=== PATIENT | male | born 1970 | race Two or more races ===

== ENCOUNTER 2022-03-22 08:26 | Inpatient (IN) | payer MEDICAID, MEDICARE ==
[~2022-03-22] VITALS: Ht 165.1 cm; Wt 66.5 kg
[2022-03-22 09:08] LABS: Hemoglobin 14.2 g/dL (13.5-17.5); Mean Corpuscular Hemoglobin 29.1 pg (28.0-32.0); Mean Corpuscular Hgb Conc. 33.8 g/dL (32.0-36.0); Mean Corpuscular Volume 86.2 fL (80.0-100.0); Red Blood Cells 4.87 10^6/uL (4.5-5.90); Red Cell Distribution Width 12.5 % (11.8-14.3); White Blood Cell 26.1 10^3/uL (4.4-10.8)
[2022-03-22 09:17] LABS: Band Neutrophils % (manual) 0; Basophils % (manual) 0 (0.0-2.0); Blast Cells 0; Eosinophils % (manual) 0 (0-7); Metamyelocytes % 0; Myelocytes % 0; Promyelocytes % 0; Reactive Lymphocytes 0
[2022-03-22 09:23] LABS: Albumin 2.4 g/dL (3.4-5.0); BUN/Creatinine Ratio 21.9; Calcium 8.3 mg/dL (8.5-10.1); Magnesium 2.2 mg/dL (1.6-2.6); Potassium 4.7 mmol/L (3.5-5.1)
[2022-03-22 09:34] LABS: Total Protein 6.6 g/dL (6.4-8.2)
[2022-03-22 10:40] LABS: Lymphocytes % (manual) 5 (10.0-50.0); Monocytes % (manual) 4 (0-12)
[2022-03-22] MEDS ORDERED: SODIUM CHLORIDE 0.9% 1,000 ML IV ONE ×2 (14:00→19:00)
[2022-03-22] MEDS ORDERED: cefTRIAXone 1GM/50ML D5W 50 ML IV ONE (14:00)
[2022-03-22] MEDS ORDERED: VANCOMYCIN 1GM/250ML 250 ML IV ONE (17:45)
[2022-03-22 17:46] LABS: Lactic Acid w/Reflex 2.5 mmol/L (0.4-2.0)
[2022-03-22 18:18] LABS: Urine Bacteria NONE SEEN /hpf (None Seen); Urine Blood Negative /uL (Negative); Urine Hyaline Cast FEW /lpf (0 - 2); Urine Specific Gravity 1.025 (1.001-1.035); Urine WBC 3 /hpf (0 - 3)
[2022-03-22 18:31] LABS: Alcohol, Urine < 3.0 mg/dL (0-10); Amphetamine Screen, Urine NEGATIVE (NEGATIVE); Barbiturate Scree,Urine NEGATIVE (NEGATIVE); Benzodiazephine Screen, Urine NEGATIVE (NEGATIVE); Cannabinoid Screen, Urine NEGATIVE (NEGATIVE); Cocaine Screen, Urine NEGATIVE (NEGATIVE); Opiate Scree,Urine NEGATIVE (NEGATIVE); Phencyclidine Screen, Urine NEGATIVE (NEGATIVE)
[2022-03-22] MEDS ORDERED: NITROGLYCERIN 0.4 MG SL TAB SL PRN (19:00)
[2022-03-22] MEDS ORDERED: VANCOMYCIN PER PHARMACY 0 MG IV SCH (19:00)
[2022-03-22] MEDS ORDERED: MORPHINE SULFATE INJ 2 MG/ml SYRG IV PRN (19:00)
[2022-03-22] MEDS ORDERED: ONDANSETRON HCL 4 MG/2 ML VIAL IV PRN (19:00)
[2022-03-22] MEDS ORDERED: DEXTROSE (50%) 50ML SYRG IV PRN (19:15)
[2022-03-22 19:57] LABS: Cholesterol 121 mg/dL (< 200)
[2022-03-22 20:00] LABS: HDL Cholesterol 17 mg/dL (40-59); LDL Cholesterol 88 mg/dL (< 100); Triglycerides 172 mg/dL (< 150)
[2022-03-22] MEDS: PIPERACILLIN-TAZOB 3.375GM 100 ML IV SCH (20:47)
[2022-03-22] MEDS: MORPHINE SULFATE INJ 2 MG/ml SYRG IV PRN (21:00)
[2022-03-22] MEDS: ACCU-CHEK COMFORT CURVE STRIP VI SCH (22:21)
[2022-03-22] MEDS: InsuLIN REG 1unit/0.01ml Soln (100units/ml) SC SCH (22:26)
[2022-03-23] MEDS: VANCOMYCIN 1GM/250ML 250 ML IV SCH ×3 (01:16→18:25)
[2022-03-23] MEDS ORDERED: METF-370 PO (01:16)
[2022-03-23] MEDS: SODIUM CHLORIDE 0.9% 1,000 ML IV SCH ×3 (01:16→12:22)
[2022-03-23] MEDS ORDERED: GABA250S2 PO (01:16)
[2022-03-23] MEDS ORDERED: INSLANTI SC (01:16)
[2022-03-23] MEDS: MORPHINE SULFATE INJ 2 MG/ml SYRG IV PRN (01:17)
[2022-03-23 05:00] VITALS: BP 127/62
[2022-03-23] MEDS: ACETAMINOPHEN 325 MG TAB PO PRN ×3 (05:07→22:40)
[2022-03-23] MEDS: PIPERACILLIN-TAZOB 3.375GM 100 ML IV SCH ×2 (06:12→14:34)
[2022-03-23] MEDS: ACCU-CHEK COMFORT CURVE STRIP VI SCH ×4 (06:34→23:04)
[2022-03-23] MEDS: InsuLIN REG 1unit/0.01ml Soln (100units/ml) SC SCH ×4 (06:35→23:11)
[2022-03-23 08:00] VITALS: BP 117/70
[2022-03-23 08:35] LABS: Hematocrit 40.5 % (41.0-53.0); Hemoglobin 13.7 g/dL (13.5-17.5); Mean Corpuscular Hemoglobin 29.2 pg (28.0-32.0); Mean Corpuscular Hgb Conc. 33.8 g/dL (32.0-36.0); Mean Corpuscular Volume 86.5 fL (80.0-100.0); Red Blood Cells 4.68 10^6/uL (4.5-5.90); Red Cell Distribution Width 12.5 % (11.8-14.3); White Blood Cell 26.6 10^3/uL (4.4-10.8)
[2022-03-23 08:46] LABS: Basophils % (manual) 0 (0.0-2.0); Blast Cells 0; Eosinophils % (manual) 0 (0-7); Metamyelocytes % 0; Myelocytes % 0; Promyelocytes % 0; Reactive Lymphocytes 0
[2022-03-23 08:54] VITALS: BP 117/62
[2022-03-23] MEDS: ENOXAPARIN SOD 40 MG/0.4 ML SYRINGE SC SCH (09:51)
[2022-03-23] MEDS: HYDROcodone-ACET 5/325MG TAB PO PRN (09:52)
[2022-03-23 09:57] LABS: Band Neutrophils % (manual) 1; Lymphocytes % (manual) 6 (10.0-50.0); Monocytes % (manual) 7 (0-12)
[2022-03-23 10:07] LABS: Albumin 1.8 g/dL (3.4-5.0); Calcium 7.8 mg/dL (8.5-10.1); Potassium 4.3 mmol/L (3.5-5.1)
[2022-03-23 10:10] LABS: BUN/Creatinine Ratio 21.6; Bilirubin, Total 0.7 mg/dL (0.2-1.0); Total Protein 5.5 g/dL (6.4-8.2)
[2022-03-23 13:00] VITALS: BP 113/68
[2022-03-23 17:00] VITALS: BP 122/69
[2022-03-23] MEDS ORDERED: PIPERACILLIN-TAZO 4.5GM 100 ML IV SCH (18:00)
[2022-03-23] MEDS: metFORMIN HYDROCHLORIDE 500 MG TAB PO SCH (18:24)
[2022-03-23] MEDS: PIPERACILLIN-TAZO 4.5GM 100 ML IV SCH (20:20)
[2022-03-23 22:00] VITALS: BP 122/64
[2022-03-23] MEDS ORDERED: INSULIN LANTUS (GLARGINE) 1 /0.01ml (100units/ml) SC SCH (22:00)
[2022-03-24] MEDS: PIPERACILLIN-TAZO 4.5GM 100 ML IV SCH ×4 (01:58→19:47)
[2022-03-24] MEDS: VANCOMYCIN 1GM/250ML 250 ML IV SCH ×3 (04:53→22:17)
[2022-03-24 05:00] VITALS: BP 111/63
[2022-03-24] MEDS: ACCU-CHEK COMFORT CURVE STRIP VI SCH ×4 (06:08→22:31)
[2022-03-24] MEDS: InsuLIN REG 1unit/0.01ml Soln (100units/ml) SC SCH ×4 (06:09→22:33)
[2022-03-24 08:00] VITALS: BP 113/63
[2022-03-24] MEDS: metFORMIN HYDROCHLORIDE 500 MG TAB PO SCH ×2 (08:07→18:02)
[2022-03-24 08:53] VITALS: BP 113/63
[2022-03-24] MEDS: ENOXAPARIN SOD 40 MG/0.4 ML SYRINGE SC SCH (10:05)
[2022-03-24 13:00] VITALS: BP 118/51
[2022-03-24 17:00] VITALS: BP 137/58
[2022-03-24 22:00] VITALS: BP 155/68
[2022-03-24] MEDS ORDERED: INSULIN LANTUS (GLARGINE) 1 /0.01ml (100units/ml) SC SCH (22:00)
[2022-03-24] MEDS: ACETAMINOPHEN 325 MG TAB PO PRN (22:17)
[2022-03-25] MEDS: PIPERACILLIN-TAZO 4.5GM 100 ML IV SCH ×4 (03:05→19:57)
[2022-03-25 05:00] VITALS: BP 97/57
[2022-03-25] MEDS: VANCOMYCIN 1GM/250ML 250 ML IV SCH ×2 (06:20→13:07)
[2022-03-25] MEDS: ACCU-CHEK COMFORT CURVE STRIP VI SCH ×4 (06:20→21:46)
[2022-03-25] MEDS: InsuLIN REG 1unit/0.01ml Soln (100units/ml) SC SCH ×4 (06:21→22:04)
[2022-03-25 06:37] LABS: Calcium 7.8 mg/dL (8.5-10.1); Potassium 3.9 mmol/L (3.5-5.1)
[2022-03-25 06:44] LABS: BUN/Creatinine Ratio 23.5
[2022-03-25 06:59] LABS: Basophils # (auto) 0.1 10 ^3/uL (0-0.2); Basophils % (auto) 0.6 % (0.0-2.0); Eosinophils # (auto) 0 10 ^3/uL (0-0.8); Eosinophils % (auto) 0.1 % (0.0-7.0); Hematocrit 35.3 % (41.0-53.0); Hemoglobin 11.9 g/dL (13.5-17.5); Lymphocytes % (auto) 6.5 % (10.0-50.0); Mean Corpuscular Hgb Conc. 33.7 g/dL (32.0-36.0); Monocytes # (auto) 0.9 10 ^3/uL (0-1.3); Monocytes % (auto) 5.6 % (0.0-12.0); Neutrophils # (auto) 13.4 10 ^3/uL (1.6-8.6); Neutrophils % (auto) 87.2 % (37.0-80.0); Nucleated Red Blood Cells % 0.1 %; Red Blood Cells 4.11 10^6/uL (4.5-5.90); Red Cell Distribution Width 12.6 % (11.8-14.3); White Blood Cell 15.3 10^3/uL (4.4-10.8)
[2022-03-25] MEDS: metFORMIN HYDROCHLORIDE 500 MG TAB PO SCH ×2 (08:22→17:44)
[2022-03-25 08:25] VITALS: BP 110/56
[2022-03-25] MEDS: ENOXAPARIN SOD 40 MG/0.4 ML SYRINGE SC SCH (10:26)
[2022-03-25 16:52] VITALS: BP 150/70
[2022-03-25] MEDS: MORPHINE SULFATE INJ 2 MG/ml SYRG IV PRN (17:34)
[2022-03-25] MEDS: INSULIN LANTUS (GLARGINE) 1 /0.01ml (100units/ml) SC SCH (21:47)
[2022-03-25 22:00] VITALS: BP 127/56
[2022-03-26] MEDS: VANCOMYCIN 1GM/250ML 250 ML IV SCH ×3 (00:03→17:44)
[2022-03-26] MEDS: PIPERACILLIN-TAZO 4.5GM 100 ML IV SCH ×4 (01:47→20:01)
[2022-03-26 05:00] VITALS: BP 124/42
[2022-03-26 05:42] LABS: Eosinophils # (auto) 0 10 ^3/uL (0-0.8); Eosinophils % (auto) 0.3 % (0.0-7.0); Monocytes # (auto) 1.3 10 ^3/uL (0-1.3)
[2022-03-26 05:47] LABS: Basophils # (auto) 0.2 10 ^3/uL (0-0.2); Basophils % (auto) 1.3 % (0.0-2.0); Hemoglobin 11.6 g/dL (13.5-17.5); Lymphocytes # (auto) 1.3 10 ^3/uL (0.4-5.4); Mean Corpuscular Hemoglobin 28.6 pg (28.0-32.0); Mean Corpuscular Hgb Conc. 33.1 g/dL (32.0-36.0); Mean Corpuscular Volume 86.3 fL (80.0-100.0); Monocytes % (auto) 8.9 % (0.0-12.0); Neutrophils # (auto) 11.8 10 ^3/uL (1.6-8.6); Neutrophils % (auto) 80.5 % (37.0-80.0); Red Blood Cells 4.06 10^6/uL (4.5-5.90); Red Cell Distribution Width 12.6 % (11.8-14.3); White Blood Cell 14.7 10^3/uL (4.4-10.8)
[2022-03-26 05:53] LABS: BUN/Creatinine Ratio 18.3; Calcium 7.8 mg/dL (8.5-10.1); Potassium 3.9 mmol/L (3.5-5.1)
[2022-03-26] MEDS: ACCU-CHEK COMFORT CURVE STRIP VI SCH ×4 (06:10→21:52)
[2022-03-26] MEDS: InsuLIN REG 1unit/0.01ml Soln (100units/ml) SC SCH ×4 (06:10→21:53)
[2022-03-26 09:00] VITALS: BP 111/54
[2022-03-26] MEDS: metFORMIN HYDROCHLORIDE 500 MG TAB PO SCH ×2 (09:23→17:44)
[2022-03-26] MEDS: HYDROcodone-ACET 5/325MG TAB PO PRN (09:24)
[2022-03-26] MEDS: ENOXAPARIN SOD 40 MG/0.4 ML SYRINGE SC SCH (09:24)
[2022-03-26 13:00] VITALS: BP 129/60
[2022-03-26 17:00] VITALS: BP 105/58
[2022-03-26] MEDS: MORPHINE SULFATE INJ 2 MG/ml SYRG IV PRN (20:01)
[2022-03-26] MEDS: INSULIN LANTUS (GLARGINE) 1 /0.01ml (100units/ml) SC SCH (21:53)
[2022-03-26 22:00] VITALS: BP 157/55
[2022-03-27] MEDS: VANCOMYCIN 1GM/250ML 250 ML IV SCH ×2 (00:38→19:38)
[2022-03-27] MEDS: PIPERACILLIN-TAZO 4.5GM 100 ML IV SCH ×4 (02:14→21:08)
[2022-03-27 05:00] VITALS: BP 125/53
[2022-03-27 06:02] LABS: Basophils # (auto) 0.1 10 ^3/uL (0-0.2)
[2022-03-27] MEDS: ACCU-CHEK COMFORT CURVE STRIP VI SCH ×4 (06:04→22:04)
[2022-03-27] MEDS: InsuLIN REG 1unit/0.01ml Soln (100units/ml) SC SCH ×4 (06:04→22:03)
[2022-03-27 06:05] LABS: Basophils % (auto) 1.1 % (0.0-2.0); Eosinophils # (auto) 0.1 10 ^3/uL (0-0.8); Eosinophils % (auto) 0.4 % (0.0-7.0); Hematocrit 34.6 % (41.0-53.0); Hemoglobin 11.6 g/dL (13.5-17.5); Lymphocytes # (auto) 1.4 10 ^3/uL (0.4-5.4); Lymphocytes % (auto) 11.1 % (10.0-50.0); Mean Corpuscular Hemoglobin 29.2 pg (28.0-32.0); Mean Corpuscular Hgb Conc. 33.6 g/dL (32.0-36.0); Mean Corpuscular Volume 86.9 fL (80.0-100.0); Monocytes % (auto) 8.3 % (0.0-12.0); Neutrophils # (auto) 9.8 10 ^3/uL (1.6-8.6); Neutrophils % (auto) 79.1 % (37.0-80.0); Red Blood Cells 3.98 10^6/uL (4.5-5.90); Red Cell Distribution Width 12.8 % (11.8-14.3); White Blood Cell 12.4 10^3/uL (4.4-10.8)
[2022-03-27 06:17] LABS: BUN/Creatinine Ratio 15.3; Calcium 7.7 mg/dL (8.5-10.1); Potassium 3.9 mmol/L (3.5-5.1)
[2022-03-27 08:27] VITALS: BP 109/57
[2022-03-27] MEDS: ENOXAPARIN SOD 40 MG/0.4 ML SYRINGE SC SCH (10:16)
[2022-03-27] MEDS: metFORMIN HYDROCHLORIDE 500 MG TAB PO SCH ×2 (10:16→17:24)
[2022-03-27] MEDS: MORPHINE SULFATE INJ 2 MG/ml SYRG IV PRN ×2 (10:29→21:31)
[2022-03-27] MEDS ORDERED: IOHEXOL 300 MG/ML 100ML BOTTLE IJ ONE (11:20)
[2022-03-27 12:55] VITALS: BP 152/48
[2022-03-27] MEDS: Pro-Stat SF 30ml Vanilla PO SCH (18:00)
[2022-03-27 18:36] VITALS: BP 140/36
[2022-03-27 22:00] VITALS: BP 110/52
[2022-03-27] MEDS: INSULIN LANTUS (GLARGINE) 1 /0.01ml (100units/ml) SC SCH (22:04)
[2022-03-28] MEDS: PIPERACILLIN-TAZO 4.5GM 100 ML IV SCH ×4 (02:52→21:19)
[2022-03-28 05:00] VITALS: BP 115/55
[2022-03-28 06:01] LABS: Basophils # (auto) 0.1 10 ^3/uL (0-0.2); Eosinophils # (auto) 0.1 10 ^3/uL (0-0.8); Eosinophils % (auto) 0.5 % (0.0-7.0); Hemoglobin 11.3 g/dL (13.5-17.5); Neutrophils # (auto) 9.5 10 ^3/uL (1.6-8.6)
[2022-03-28 06:03] LABS: Basophils % (auto) 0.7 % (0.0-2.0); Hematocrit 33.4 % (41.0-53.0); Lymphocytes # (auto) 1.5 10 ^3/uL (0.4-5.4); Lymphocytes % (auto) 12.5 % (10.0-50.0); Mean Corpuscular Hgb Conc. 33.7 g/dL (32.0-36.0); Mean Corpuscular Volume 86.2 fL (80.0-100.0); Monocytes % (auto) 8.5 % (0.0-12.0); Neutrophils % (auto) 77.8 % (37.0-80.0); Red Blood Cells 3.88 10^6/uL (4.5-5.90); Red Cell Distribution Width 12.9 % (11.8-14.3); White Blood Cell 12.2 10^3/uL (4.4-10.8)
[2022-03-28 06:13] LABS: BUN/Creatinine Ratio 22.5; Calcium 7.5 mg/dL (8.5-10.1)
[2022-03-28] MEDS: ACCU-CHEK COMFORT CURVE STRIP VI SCH ×4 (06:22→21:58)
[2022-03-28] MEDS: InsuLIN REG 1unit/0.01ml Soln (100units/ml) SC SCH ×4 (06:23→21:57)
[2022-03-28] MEDS: metFORMIN HYDROCHLORIDE 500 MG TAB PO SCH ×2 (08:00→18:00)
[2022-03-28] MEDS: ENOXAPARIN SOD 40 MG/0.4 ML SYRINGE SC SCH (08:50)
[2022-03-28] MEDS: Pro-Stat SF 30ml Vanilla PO SCH ×2 (08:50→17:06)
[2022-03-28 09:00] VITALS: BP 139/55
[2022-03-28] MEDS: MORPHINE SULFATE INJ 2 MG/ml SYRG IV PRN (09:52)
[2022-03-28] MEDS: VANCOMYCIN 1GM/250ML 250 ML IV SCH (11:54)
[2022-03-28 13:00] VITALS: BP 126/49
[2022-03-28 16:42] VITALS: BP 126/54
[2022-03-28] MEDS: INSULIN LANTUS (GLARGINE) 1 /0.01ml (100units/ml) SC SCH (21:58)
[2022-03-28] MEDS: HYDROcodone-ACET 5/325MG TAB PO PRN (22:05)
[2022-03-28 22:12] VITALS: BP 106/62
[2022-03-29] MEDS: PIPERACILLIN-TAZO 4.5GM 100 ML IV SCH ×4 (02:33→20:10)
[2022-03-29 04:44] VITALS: BP 101/58
[2022-03-29 05:51] LABS: Basophils # (auto) 0.4 10 ^3/uL (0-0.2); Basophils % (auto) 4.4 % (0.0-2.0); Eosinophils # (auto) 0.1 10 ^3/uL (0-0.8); Eosinophils % (auto) 1.5 % (0.0-7.0); Hematocrit 32.6 % (41.0-53.0); Hemoglobin 11.1 g/dL (13.5-17.5); Lymphocytes % (auto) 19.9 % (10.0-50.0); Mean Corpuscular Hemoglobin 29.4 pg (28.0-32.0); Mean Corpuscular Volume 86.3 fL (80.0-100.0); Monocytes # (auto) 0.9 10 ^3/uL (0-1.3); Monocytes % (auto) 8.8 % (0.0-12.0); Neutrophils # (auto) 6.6 10 ^3/uL (1.6-8.6); Neutrophils % (auto) 65.4 % (37.0-80.0); Red Blood Cells 3.77 10^6/uL (4.5-5.90); Red Cell Distribution Width 13.1 % (11.8-14.3)
[2022-03-29 06:16] LABS: Calcium 7.7 mg/dL (8.5-10.1); Potassium 4.4 mmol/L (3.5-5.1)
[2022-03-29 06:19] LABS: BUN/Creatinine Ratio 22.7
[2022-03-29] MEDS: InsuLIN REG 1unit/0.01ml Soln (100units/ml) SC SCH ×4 (06:32→22:52)
[2022-03-29] MEDS: ACCU-CHEK COMFORT CURVE STRIP VI SCH ×4 (06:32→22:53)
[2022-03-29] MEDS: VANCOMYCIN 1GM/250ML 250 ML IV SCH (06:34)
[2022-03-29 09:00] VITALS: BP 109/58
[2022-03-29] MEDS: metFORMIN HYDROCHLORIDE 500 MG TAB PO SCH ×2 (09:21→18:18)
[2022-03-29] MEDS: ENOXAPARIN SOD 40 MG/0.4 ML SYRINGE SC SCH (09:22)
[2022-03-29] MEDS: Pro-Stat SF 30ml Vanilla PO SCH ×2 (12:49→18:18)
[2022-03-29 13:00] VITALS: BP 116/64
[2022-03-29] MEDS: HYDROcodone-ACET 5/325MG TAB PO PRN (14:35)
[2022-03-29 17:00] VITALS: BP 110/64
[2022-03-29] MEDS: MORPHINE SULFATE INJ 2 MG/ml SYRG IV PRN (18:21)
[2022-03-29 22:00] VITALS: BP 107/63
[2022-03-29] MEDS: INSULIN LANTUS (GLARGINE) 1 /0.01ml (100units/ml) SC SCH (22:52)
[2022-03-30] MEDS: VANCOMYCIN 1GM/250ML 250 ML IV SCH ×2 (00:07→17:41)
[2022-03-30] MEDS: PIPERACILLIN-TAZO 4.5GM 100 ML IV SCH ×4 (02:04→21:20)
[2022-03-30 05:00] VITALS: BP 111/65
[2022-03-30 05:06] LABS: Basophils # (auto) 0.2 10 ^3/uL (0-0.2); Basophils % (auto) 1.5 % (0.0-2.0); Eosinophils # (auto) 0.1 10 ^3/uL (0-0.8); Eosinophils % (auto) 1.3 % (0.0-7.0); Hematocrit 34.8 % (41.0-53.0); Hemoglobin 11.5 g/dL (13.5-17.5); Lymphocytes # (auto) 1.6 10 ^3/uL (0.4-5.4); Lymphocytes % (auto) 13.9 % (10.0-50.0); Mean Corpuscular Hemoglobin 28.5 pg (28.0-32.0); Mean Corpuscular Hgb Conc. 32.9 g/dL (32.0-36.0); Mean Corpuscular Volume 86.6 fL (80.0-100.0); Monocytes % (auto) 8.9 % (0.0-12.0); Neutrophils # (auto) 8.6 10 ^3/uL (1.6-8.6); Neutrophils % (auto) 74.4 % (37.0-80.0); Red Blood Cells 4.02 10^6/uL (4.5-5.90); Red Cell Distribution Width 12.8 % (11.8-14.3); White Blood Cell 11.6 10^3/uL (4.4-10.8)
[2022-03-30 05:20] LABS: Potassium 4.6 mmol/L (3.5-5.1)
[2022-03-30] MEDS: InsuLIN REG 1unit/0.01ml Soln (100units/ml) SC SCH ×4 (07:00→21:27)
[2022-03-30] MEDS: ACCU-CHEK COMFORT CURVE STRIP VI SCH ×4 (07:02→21:09)
[2022-03-30] MEDS: ENOXAPARIN SOD 40 MG/0.4 ML SYRINGE SC SCH (08:27)
[2022-03-30] MEDS: metFORMIN HYDROCHLORIDE 500 MG TAB PO SCH ×2 (08:27→17:38)
[2022-03-30] MEDS: Pro-Stat SF 30ml Vanilla PO SCH ×2 (08:28→17:42)
[2022-03-30 09:00] VITALS: BP 115/59
[2022-03-30] MEDS: HYDROcodone-ACET 5/325MG TAB PO PRN (09:34)
[2022-03-30 13:00] VITALS: BP 108/62
[2022-03-30] MEDS: MORPHINE SULFATE INJ 2 MG/ml SYRG IV PRN ×2 (15:00→21:06)
[2022-03-30 17:00] VITALS: BP 125/68
[2022-03-30 20:00] VITALS: BP 130/67
[2022-03-30] MEDS: INSULIN LANTUS (GLARGINE) 1 /0.01ml (100units/ml) SC SCH (21:28)
[2022-03-30 22:00] VITALS: BP 130/67
[2022-03-31] MEDS: PIPERACILLIN-TAZO 4.5GM 100 ML IV SCH ×4 (03:31→20:28)
[2022-03-31 05:00] VITALS: BP 157/51
[2022-03-31] MEDS: InsuLIN REG 1unit/0.01ml Soln (100units/ml) SC SCH ×4 (06:26→22:36)
[2022-03-31] MEDS: ACCU-CHEK COMFORT CURVE STRIP VI SCH ×4 (06:26→22:00)
[2022-03-31] MEDS: metFORMIN HYDROCHLORIDE 500 MG TAB PO SCH ×2 (08:12→17:14)
[2022-03-31] MEDS: ENOXAPARIN SOD 40 MG/0.4 ML SYRINGE SC SCH (08:12)
[2022-03-31] MEDS: Pro-Stat SF 30ml Vanilla PO SCH ×2 (08:13→17:15)
[2022-03-31] MEDS: HYDROcodone-ACET 5/325MG TAB PO PRN ×3 (08:19→22:37)
[2022-03-31 08:30] VITALS: BP 125/62
[2022-03-31 09:40] LABS: Basophils # (auto) 0.2 10 ^3/uL (0-0.2); Eosinophils # (auto) 0.1 10 ^3/uL (0-0.8); Lymphocytes # (auto) 1.4 10 ^3/uL (0.4-5.4)
[2022-03-31 09:42] LABS: Basophils % (auto) 1.3 % (0.0-2.0); Eosinophils % (auto) 0.5 % (0.0-7.0); Hematocrit 33.6 % (41.0-53.0); Hemoglobin 11.3 g/dL (13.5-17.5); Lymphocytes % (auto) 8.8 % (10.0-50.0); Mean Corpuscular Hemoglobin 28.9 pg (28.0-32.0); Mean Corpuscular Hgb Conc. 33.8 g/dL (32.0-36.0); Mean Corpuscular Volume 85.5 fL (80.0-100.0); Monocytes % (auto) 6.4 % (0.0-12.0); Neutrophils # (auto) 13.2 10 ^3/uL (1.6-8.6); Red Blood Cells 3.92 10^6/uL (4.5-5.90); Red Cell Distribution Width 12.9 % (11.8-14.3); White Blood Cell 15.9 10^3/uL (4.4-10.8)
[2022-03-31 10:00] LABS: Calcium 8.1 mg/dL (8.5-10.1); Potassium 4.7 mmol/L (3.5-5.1)
[2022-03-31] MEDS: VANCOMYCIN 1GM/250ML 250 ML IV SCH (12:09)
[2022-03-31 12:36] VITALS: BP 112/64
[2022-03-31 12:38] VITALS: BP 112/64
[2022-03-31 17:40] VITALS: BP 113/62
[2022-03-31 22:00] VITALS: BP 120/60
[2022-03-31] MEDS: INSULIN LANTUS (GLARGINE) 1 /0.01ml (100units/ml) SC SCH (22:36)
[2022-04-01] MEDS: PIPERACILLIN-TAZO 4.5GM 100 ML IV SCH ×4 (02:17→19:50)
[2022-04-01 05:00] VITALS: BP 130/67
[2022-04-01] MEDS: VANCOMYCIN 1GM/250ML 250 ML IV SCH (05:34)
[2022-04-01] MEDS: InsuLIN REG 1unit/0.01ml Soln (100units/ml) SC SCH ×4 (06:26→22:18)
[2022-04-01] MEDS: ACCU-CHEK COMFORT CURVE STRIP VI SCH ×4 (06:28→22:19)
[2022-04-01] MEDS: metFORMIN HYDROCHLORIDE 500 MG TAB PO SCH ×2 (08:47→18:08)
[2022-04-01] MEDS: HYDROcodone-ACET 5/325MG TAB PO PRN ×3 (08:48→22:33)
[2022-04-01] MEDS: Pro-Stat SF 30ml Vanilla PO SCH ×2 (08:49→18:10)
[2022-04-01] MEDS: ENOXAPARIN SOD 40 MG/0.4 ML SYRINGE SC SCH (08:50)
[2022-04-01 09:00] VITALS: BP 116/65
[2022-04-01 13:00] VITALS: BP 119/62
[2022-04-01 17:00] VITALS: BP 120/67
[2022-04-01 22:00] VITALS: BP 134/65
[2022-04-01] MEDS: INSULIN LANTUS (GLARGINE) 1 /0.01ml (100units/ml) SC SCH (22:19)
[2022-04-02] MEDS: VANCOMYCIN 1GM/250ML 250 ML IV SCH ×2 (00:18→12:17)
[2022-04-02] MEDS: PIPERACILLIN-TAZO 4.5GM 100 ML IV SCH ×4 (02:27→19:59)
[2022-04-02 05:00] VITALS: BP 124/65
[2022-04-02] MEDS: InsuLIN REG 1unit/0.01ml Soln (100units/ml) SC SCH ×4 (06:39→21:50)
[2022-04-02] MEDS: ACCU-CHEK COMFORT CURVE STRIP VI SCH ×4 (06:39→21:52)
[2022-04-02 08:14] VITALS: BP 112/53
[2022-04-02] MEDS: metFORMIN HYDROCHLORIDE 500 MG TAB PO SCH ×2 (08:40→18:32)
[2022-04-02] MEDS: Pro-Stat SF 30ml Vanilla PO SCH ×2 (08:41→18:17)
[2022-04-02] MEDS: ENOXAPARIN SOD 40 MG/0.4 ML SYRINGE SC SCH (09:27)
[2022-04-02 11:09] LABS: Eosinophils # (auto) 0.2 10 ^3/uL (0-0.8); Hemoglobin 11.1 g/dL (13.5-17.5); Nucleated Red Blood Cells % 0.1 %
[2022-04-02 11:12] LABS: Basophils # (auto) 0.1 10 ^3/uL (0-0.2); Basophils % (auto) 0.7 % (0.0-2.0); Hematocrit 34.3 % (41.0-53.0); Lymphocytes # (auto) 1.4 10 ^3/uL (0.4-5.4); Lymphocytes % (auto) 8.5 % (10.0-50.0); Mean Corpuscular Hgb Conc. 32.4 g/dL (32.0-36.0); Mean Corpuscular Volume 86.4 fL (80.0-100.0); Monocytes # (auto) 0.9 10 ^3/uL (0-1.3); Monocytes % (auto) 5.1 % (0.0-12.0); Neutrophils # (auto) 14.1 10 ^3/uL (1.6-8.6); Neutrophils % (auto) 84.7 % (37.0-80.0); Red Blood Cells 3.97 10^6/uL (4.5-5.90); Red Cell Distribution Width 12.9 % (11.8-14.3); White Blood Cell 16.7 10^3/uL (4.4-10.8)
[2022-04-02 11:53] LABS: BUN/Creatinine Ratio 19.8; Calcium 7.9 mg/dL (8.5-10.1); Potassium 4.5 mmol/L (3.5-5.1)
[2022-04-02 13:48] VITALS: BP 115/64
[2022-04-02 17:37] VITALS: BP 128/69
[2022-04-02] MEDS: HYDROcodone-ACET 5/325MG TAB PO PRN (21:50)
[2022-04-02] MEDS: INSULIN LANTUS (GLARGINE) 1 /0.01ml (100units/ml) SC SCH (21:50)
[2022-04-03] MEDS: VANCOMYCIN 1GM/250ML 250 ML IV SCH ×3 (00:01→23:55)
[2022-04-03] MEDS: PIPERACILLIN-TAZO 4.5GM 100 ML IV SCH ×4 (02:00→19:49)
[2022-04-03 05:00] VITALS: BP 132/65
[2022-04-03] MEDS: InsuLIN REG 1unit/0.01ml Soln (100units/ml) SC SCH ×4 (06:46→22:04)
[2022-04-03] MEDS: ACCU-CHEK COMFORT CURVE STRIP VI SCH ×4 (06:46→22:06)
[2022-04-03] MEDS: metFORMIN HYDROCHLORIDE 500 MG TAB PO SCH ×2 (08:33→18:00)
[2022-04-03] MEDS: Pro-Stat SF 30ml Vanilla PO SCH ×2 (08:34→18:04)
[2022-04-03 09:00] VITALS: BP 121/65
[2022-04-03] MEDS: ENOXAPARIN SOD 40 MG/0.4 ML SYRINGE SC SCH (09:57)
[2022-04-03 12:46] VITALS: BP 107/65
[2022-04-03] MEDS: HYDROcodone-ACET 10/325MG TAB PO PRN (16:22)
[2022-04-03 17:00] VITALS: BP 154/72
[2022-04-03 20:00] VITALS: BP 136/62
[2022-04-03 22:00] VITALS: BP 136/62
[2022-04-03] MEDS: INSULIN LANTUS (GLARGINE) 1 /0.01ml (100units/ml) SC SCH (22:06)
[2022-04-04] MEDS: PIPERACILLIN-TAZO 4.5GM 100 ML IV SCH ×4 (02:12→20:25)
[2022-04-04 05:00] VITALS: BP 122/59
[2022-04-04] MEDS: InsuLIN REG 1unit/0.01ml Soln (100units/ml) SC SCH ×4 (06:44→22:00)
[2022-04-04] MEDS: ACCU-CHEK COMFORT CURVE STRIP VI SCH ×4 (06:44→22:41)
[2022-04-04] MEDS: metFORMIN HYDROCHLORIDE 500 MG TAB PO SCH ×2 (08:00→17:13)
[2022-04-04] MEDS: Pro-Stat SF 30ml Vanilla PO SCH ×2 (08:16→18:33)
[2022-04-04 08:53] VITALS: BP 131/68
[2022-04-04] MEDS: VANCOMYCIN 1GM/250ML 250 ML IV SCH (12:17)
[2022-04-04 13:00] VITALS: BP 140/72
[2022-04-04 14:36] LABS: Basophils # (auto) 0.1 10 ^3/uL (0-0.2); Basophils % (auto) 0.4 % (0.0-2.0); Eosinophils # (auto) 0.4 10 ^3/uL (0-0.8); Eosinophils % (auto) 2.7 % (0.0-7.0); Hematocrit 30.9 % (41.0-53.0); Lymphocytes # (auto) 0.8 10 ^3/uL (0.4-5.4); Lymphocytes % (auto) 6.3 % (10.0-50.0); Mean Corpuscular Hemoglobin 28.2 pg (28.0-32.0); Mean Corpuscular Hgb Conc. 32.3 g/dL (32.0-36.0); Mean Corpuscular Volume 87.3 fL (80.0-100.0); Monocytes # (auto) 0.7 10 ^3/uL (0-1.3); Neutrophils # (auto) 11.3 10 ^3/uL (1.6-8.6); Neutrophils % (auto) 85.6 % (37.0-80.0); Nucleated Red Blood Cells % 0.1 %; Red Blood Cells 3.54 10^6/uL (4.5-5.90); Red Cell Distribution Width 12.8 % (11.8-14.3); White Blood Cell 13.3 10^3/uL (4.4-10.8)
[2022-04-04 14:50] LABS: INR 1.17 (0.9-1.15)
[2022-04-04 14:56] LABS: Albumin 1.8 g/dL (3.4-5.0); Calcium 7.6 mg/dL (8.5-10.1); Potassium 4.3 mmol/L (3.5-5.1)
[2022-04-04 15:05] LABS: BUN/Creatinine Ratio 17.6; Bilirubin, Total 0.4 mg/dL (0.2-1.0); Total Protein 5.8 g/dL (6.4-8.2)
[2022-04-04 17:44] LABS: Calcium 7.3 mg/dL (8.5-10.1); Potassium 4.1 mmol/L (3.5-5.1)
[2022-04-04 20:00] VITALS: BP 156/65
[2022-04-04] MEDS: HYDROcodone-ACET 10/325MG TAB PO PRN (20:28)
[2022-04-04 22:20] VITALS: BP 156/65
[2022-04-04] MEDS: ACETAMINOPHEN 325 MG TAB PO PRN (22:36)
[2022-04-04] MEDS: INSULIN LANTUS (GLARGINE) 1 /0.01ml (100units/ml) SC SCH (22:38)
[2022-04-05] MEDS: VANCOMYCIN 1GM/250ML 250 ML IV SCH ×2 (00:16→12:45)
[2022-04-05] MEDS: PIPERACILLIN-TAZO 4.5GM 100 ML IV SCH ×3 (02:19→17:46)
[2022-04-05 05:21] VITALS: BP 120/58
[2022-04-05] MEDS: InsuLIN REG 1unit/0.01ml Soln (100units/ml) SC SCH ×4 (05:58→21:04)
[2022-04-05] MEDS: ACCU-CHEK COMFORT CURVE STRIP VI SCH ×4 (05:58→21:11)
[2022-04-05 07:01] LABS: Basophils # (auto) 0 10 ^3/uL (0-0.2); Basophils % (auto) 0.3 % (0.0-2.0); Eosinophils # (auto) 0.4 10 ^3/uL (0-0.8); Monocytes # (auto) 0.8 10 ^3/uL (0-1.3); Neutrophils % (auto) 87.7 % (37.0-80.0)
[2022-04-05 07:03] LABS: Eosinophils % (auto) 2.9 % (0.0-7.0); Hematocrit 33.2 % (41.0-53.0); Hemoglobin 11.2 g/dL (13.5-17.5); Lymphocytes # (auto) 0.5 10 ^3/uL (0.4-5.4); Lymphocytes % (auto) 3.8 % (10.0-50.0); Mean Corpuscular Hemoglobin 28.5 pg (28.0-32.0); Mean Corpuscular Hgb Conc. 33.6 g/dL (32.0-36.0); Mean Corpuscular Volume 84.8 fL (80.0-100.0); Monocytes % (auto) 5.3 % (0.0-12.0); Neutrophils # (auto) 12.5 10 ^3/uL (1.6-8.6); Red Blood Cells 3.92 10^6/uL (4.5-5.90); White Blood Cell 14.3 10^3/uL (4.4-10.8)
[2022-04-05 07:05] LABS: INR 1.16 (0.9-1.15); Partial Thromboplastin Time 29.9 sec (24.6-33.4)
[2022-04-05] MEDS: metFORMIN HYDROCHLORIDE 500 MG TAB PO SCH ×2 (08:00→17:11)
[2022-04-05] MEDS: Pro-Stat SF 30ml Vanilla PO SCH ×2 (08:59→17:46)
[2022-04-05 09:05] VITALS: BP 140/64
[2022-04-05] MEDS ORDERED: ENOXAPARIN SOD 40 MG/0.4 ML SYRINGE SC ONE (12:00)
[2022-04-05 12:56] VITALS: BP 125/59
[2022-04-05 16:34] VITALS: BP 151/79
[2022-04-05] MEDS: ACETAMINOPHEN 325 MG TAB PO PRN (18:18)
[2022-04-05] MEDS: INSULIN LANTUS (GLARGINE) 1 /0.01ml (100units/ml) SC SCH (21:10)
[2022-04-05] MEDS: HYDROcodone-ACET 10/325MG TAB PO PRN (21:49)
[2022-04-05 22:00] VITALS: BP 115/51
[2022-04-06] MEDS: PIPERACILLIN-TAZO 4.5GM 100 ML IV SCH ×5 (04:07→23:30)
[2022-04-06] MEDS: VANCOMYCIN 1GM/250ML 250 ML IV SCH ×2 (04:07→11:37)
[2022-04-06] MEDS: InsuLIN REG 1unit/0.01ml Soln (100units/ml) SC SCH ×4 (04:35→23:31)
[2022-04-06] MEDS: ACCU-CHEK COMFORT CURVE STRIP VI SCH ×4 (04:37→23:27)
[2022-04-06 05:00] VITALS: BP 114/54
[2022-04-06 05:55] LABS: Potassium 4.2 mmol/L (3.5-5.1)
[2022-04-06 06:08] LABS: Albumin 1.8 g/dL (3.4-5.0); BUN/Creatinine Ratio 26.7; Calcium 7.9 mg/dL (8.5-10.1); Phosphorus 2.9 mg/dL (2.5-4.90)
[2022-04-06] MEDS: Pro-Stat SF 30ml Vanilla PO SCH ×2 (08:55→17:35)
[2022-04-06] MEDS: metFORMIN HYDROCHLORIDE 500 MG TAB PO SCH ×2 (08:55→17:35)
[2022-04-06 09:00] VITALS: BP 107/56
[2022-04-06] MEDS: ENOXAPARIN SOD 40 MG/0.4 ML SYRINGE SC SCH (11:07)
[2022-04-06 12:36] VITALS: BP 121/68
[2022-04-06 16:58] VITALS: BP 135/60
[2022-04-06 22:00] VITALS: BP 107/58
[2022-04-06] MEDS: INSULIN LANTUS (GLARGINE) 1 /0.01ml (100units/ml) SC SCH (23:30)
[2022-04-06] MEDS: ACETAMINOPHEN 325 MG TAB PO PRN (23:32)
[2022-04-07 05:00] VITALS: BP 116/62
[2022-04-07] MEDS: PIPERACILLIN-TAZO 4.5GM 100 ML IV SCH ×4 (05:50→23:07)
[2022-04-07 06:00] VITALS: BP 118/58
[2022-04-07] MEDS: InsuLIN REG 1unit/0.01ml Soln (100units/ml) SC SCH ×4 (06:10→23:07)
[2022-04-07] MEDS: ACCU-CHEK COMFORT CURVE STRIP VI SCH ×4 (06:10→22:58)
[2022-04-07] MEDS: Pro-Stat SF 30ml Vanilla PO SCH ×2 (08:00→18:21)
[2022-04-07] MEDS: metFORMIN HYDROCHLORIDE 500 MG TAB PO SCH ×2 (09:36→18:21)
[2022-04-07] MEDS: ENOXAPARIN SOD 40 MG/0.4 ML SYRINGE SC SCH (09:37)
[2022-04-07] MEDS ORDERED: BUPIVACAINE 0.25% INJ 50ML VIAL ONE (12:09)
[2022-04-07] MEDS ORDERED: GENTAMICIN SULFATE 80 MG in D5W 5% 100 ML IV ONE (12:45)
[2022-04-07] MEDS ORDERED: VANCOMYCIN HCL 1000 MG VL ONE (12:45)
[2022-04-07 13:04] VITALS: BP 124/65
[2022-04-07] MEDS ORDERED: GENTAMICIN SULF 80 MG/2 ML VIAL IR ONE (13:15)
[2022-04-07] MEDS ORDERED: PROPOFOL 10 MG/ML 20 ML IV ONE ×4 (13:20→14:10)
[2022-04-07] MEDS ORDERED: LIDOCAINE 2% (LOCAL ANESTH.) PF 5ml SDV ONE (13:21)
[2022-04-07] MEDS ORDERED: ONDANSETRON HCL 4 MG/2 ML VIAL ONE (13:21)
[2022-04-07] MEDS ORDERED: KETOROLAC TROMETH 30 MG/ML 1ML VIAL ONE (13:21)
[2022-04-07] MEDS ORDERED: DexAMETHasone SOD PHOS 10MG/1ML VIAL INJ ONE (13:21)
[2022-04-07] MEDS ORDERED: BUPIVACAINE W/ EPINEPH 0.25% INJ 50ML MDV ONE (13:30)
[2022-04-07] MEDS ORDERED: GLYCOPYRROLATE 0.2 MG/ML 1ML VIAL ONE (13:31)
[2022-04-07] MEDS ORDERED: TRANEXAMIC ACID 20 ML ONE (14:08)
[2022-04-07] MEDS ORDERED: KETAMINE 50mg/ML 10ml Vial (500mg/10ml) IV ONE (15:50)
[2022-04-07 17:02] VITALS: BP 135/66
[2022-04-07] MEDS: HYDROcodone-ACET 10/325MG TAB PO PRN (19:50)
[2022-04-07 22:00] VITALS: BP 105/55
[2022-04-07] MEDS: INSULIN LANTUS (GLARGINE) 1 /0.01ml (100units/ml) SC SCH (23:07)
[2022-04-08 05:00] VITALS: BP 123/67
[2022-04-08] MEDS: PIPERACILLIN-TAZO 4.5GM 100 ML IV SCH ×3 (05:16→22:15)
[2022-04-08] MEDS: ACCU-CHEK COMFORT CURVE STRIP VI SCH ×4 (06:09→22:16)
[2022-04-08] MEDS: InsuLIN REG 1unit/0.01ml Soln (100units/ml) SC SCH ×4 (06:20→22:23)
[2022-04-08] MEDS: ENOXAPARIN SOD 40 MG/0.4 ML SYRINGE SC SCH (08:16)
[2022-04-08] MEDS: metFORMIN HYDROCHLORIDE 500 MG TAB PO SCH ×2 (08:17→17:45)
[2022-04-08] MEDS: Pro-Stat SF 30ml Vanilla PO SCH ×2 (08:18→17:47)
[2022-04-08 08:57] VITALS: BP 114/60
[2022-04-08] MEDS: VANCOMYCIN 1GM/250ML 250 ML IV SCH (12:08)
[2022-04-08 12:44] VITALS: BP 130/60
[2022-04-08 16:40] VITALS: BP 133/68
[2022-04-08] MEDS: HYDROcodone-ACET 10/325MG TAB PO PRN (17:45)
[2022-04-08 22:00] VITALS: BP 147/63
[2022-04-08] MEDS: INSULIN LANTUS (GLARGINE) 1 /0.01ml (100units/ml) SC SCH (22:23)
[2022-04-09] MEDS: VANCOMYCIN 1GM/250ML 250 ML IV SCH ×3 (00:24→16:14)
[2022-04-09 05:00] VITALS: BP 132/63
[2022-04-09] MEDS: PIPERACILLIN-TAZO 4.5GM 100 ML IV SCH ×3 (06:26→20:30)
[2022-04-09] MEDS: ACCU-CHEK COMFORT CURVE STRIP VI SCH ×4 (06:26→20:47)
[2022-04-09] MEDS: InsuLIN REG 1unit/0.01ml Soln (100units/ml) SC SCH ×4 (06:27→21:02)
[2022-04-09] MEDS: Pro-Stat SF 30ml Vanilla PO SCH ×2 (08:37→18:05)
[2022-04-09] MEDS: ENOXAPARIN SOD 40 MG/0.4 ML SYRINGE SC SCH (08:37)
[2022-04-09] MEDS: metFORMIN HYDROCHLORIDE 500 MG TAB PO SCH ×2 (08:37→17:16)
[2022-04-09 09:00] VITALS: BP 123/67
[2022-04-09 13:00] VITALS: BP 127/74
[2022-04-09 16:46] VITALS: BP 131/69
[2022-04-09] MEDS: HYDROcodone-ACET 10/325MG TAB PO PRN ×2 (17:16→21:03)
[2022-04-09] MEDS: INSULIN LANTUS (GLARGINE) 1 /0.01ml (100units/ml) SC SCH (21:03)
[2022-04-09 22:00] VITALS: BP 137/62
[2022-04-09 22:40] LABS: Basophils # (auto) 0.1 10 ^3/uL (0-0.2); Eosinophils # (auto) 0.4 10 ^3/uL (0-0.8); Eosinophils % (auto) 3.9 % (0.0-7.0); Hematocrit 29.6 % (41.0-53.0); Hemoglobin 9.9 g/dL (13.5-17.5); Lymphocytes # (auto) 1.5 10 ^3/uL (0.4-5.4); Lymphocytes % (auto) 13.5 % (10.0-50.0); Mean Corpuscular Hgb Conc. 33.5 g/dL (32.0-36.0); Mean Corpuscular Volume 83.6 fL (80.0-100.0); Monocytes # (auto) 0.8 10 ^3/uL (0-1.3); Monocytes % (auto) 6.8 % (0.0-12.0); Neutrophils # (auto) 8.5 10 ^3/uL (1.6-8.6); Neutrophils % (auto) 74.8 % (37.0-80.0); Red Blood Cells 3.54 10^6/uL (4.5-5.90); White Blood Cell 11.4 10^3/uL (4.4-10.8)
[2022-04-10] MEDS: VANCOMYCIN 1GM/250ML 250 ML IV SCH ×2 (03:59→15:48)
[2022-04-10 05:00] VITALS: BP 124/62
[2022-04-10 05:35] LABS: BUN/Creatinine Ratio 23.4; Potassium 3.9 mmol/L (3.5-5.1)
[2022-04-10] MEDS: PIPERACILLIN-TAZO 4.5GM 100 ML IV SCH ×3 (05:35→21:14)
[2022-04-10 05:36] LABS: Albumin 1.8 g/dL (3.4-5.0); Calcium 8.3 mg/dL (8.5-10.1); Phosphorus 3.4 mg/dL (2.5-4.90)
[2022-04-10] MEDS: ACCU-CHEK COMFORT CURVE STRIP VI SCH ×4 (06:15→21:15)
[2022-04-10] MEDS: HYDROcodone-ACET 10/325MG TAB PO PRN ×3 (06:15→21:15)
[2022-04-10] MEDS: InsuLIN REG 1unit/0.01ml Soln (100units/ml) SC SCH ×4 (06:40→21:14)
[2022-04-10] MEDS: Pro-Stat SF 30ml Vanilla PO SCH ×2 (08:49→17:34)
[2022-04-10] MEDS: ENOXAPARIN SOD 40 MG/0.4 ML SYRINGE SC SCH (08:50)
[2022-04-10] MEDS: metFORMIN HYDROCHLORIDE 500 MG TAB PO SCH ×2 (08:50→17:33)
[2022-04-10 09:00] VITALS: BP 119/64
[2022-04-10 13:00] VITALS: BP 126/68
[2022-04-10 16:43] VITALS: BP 133/72
[2022-04-10] MEDS: INSULIN LANTUS (GLARGINE) 1 /0.01ml (100units/ml) SC SCH (21:14)
[2022-04-10 22:00] VITALS: BP 137/72
[2022-04-11] MEDS: VANCOMYCIN 1GM/250ML 250 ML IV SCH ×2 (04:00→16:40)
[2022-04-11 05:22] VITALS: BP 127/63
[2022-04-11] MEDS: ACCU-CHEK COMFORT CURVE STRIP VI SCH ×4 (06:22→20:39)
[2022-04-11] MEDS: PIPERACILLIN-TAZO 4.5GM 100 ML IV SCH ×3 (06:40→20:38)
[2022-04-11] MEDS: InsuLIN REG 1unit/0.01ml Soln (100units/ml) SC SCH ×4 (06:41→21:59)
[2022-04-11 09:00] VITALS: BP 141/63
[2022-04-11] MEDS: ENOXAPARIN SOD 40 MG/0.4 ML SYRINGE SC SCH (11:19)
[2022-04-11] MEDS: metFORMIN HYDROCHLORIDE 500 MG TAB PO SCH ×2 (11:20→17:17)
[2022-04-11] MEDS: Pro-Stat SF 30ml Vanilla PO SCH ×2 (11:21→18:03)
[2022-04-11 13:00] VITALS: BP 127/69
[2022-04-11 15:13] LABS: Basophils # (auto) 0.2 10 ^3/uL (0-0.2); Basophils % (auto) 1.4 % (0.0-2.0); Eosinophils # (auto) 0.5 10 ^3/uL (0-0.8); Eosinophils % (auto) 4.6 % (0.0-7.0); Hematocrit 31.9 % (41.0-53.0); Hemoglobin 10.7 g/dL (13.5-17.5); Lymphocytes # (auto) 1.1 10 ^3/uL (0.4-5.4); Lymphocytes % (auto) 9.6 % (10.0-50.0); Mean Corpuscular Hemoglobin 27.9 pg (28.0-32.0); Mean Corpuscular Hgb Conc. 33.4 g/dL (32.0-36.0); Mean Corpuscular Volume 83.4 fL (80.0-100.0); Monocytes # (auto) 0.6 10 ^3/uL (0-1.3); Monocytes % (auto) 4.7 % (0.0-12.0); Neutrophils # (auto) 9.6 10 ^3/uL (1.6-8.6); Neutrophils % (auto) 79.7 % (37.0-80.0); Red Blood Cells 3.83 10^6/uL (4.5-5.90); Red Cell Distribution Width 13.4 % (11.8-14.3)
[2022-04-11 17:00] VITALS: BP 119/67
[2022-04-11] MEDS: HYDROcodone-ACET 10/325MG TAB PO PRN ×2 (17:17→21:58)
[2022-04-11] MEDS: INSULIN LANTUS (GLARGINE) 1 /0.01ml (100units/ml) SC SCH (21:58)
[2022-04-11 22:00] VITALS: BP 123/63
[2022-04-12] MEDS: VANCOMYCIN 1GM/250ML 250 ML IV SCH ×2 (03:44→17:09)
[2022-04-12 05:00] VITALS: BP 113/58
[2022-04-12] MEDS: ACCU-CHEK COMFORT CURVE STRIP VI SCH ×4 (06:54→21:26)
[2022-04-12] MEDS: InsuLIN REG 1unit/0.01ml Soln (100units/ml) SC SCH ×4 (06:54→21:40)
[2022-04-12] MEDS: PIPERACILLIN-TAZO 4.5GM 100 ML IV SCH ×3 (06:54→22:00)
[2022-04-12] MEDS: Pro-Stat SF 30ml Vanilla PO SCH ×2 (08:00→18:00)
[2022-04-12 09:00] VITALS: BP 113/58
[2022-04-12] MEDS: ENOXAPARIN SOD 40 MG/0.4 ML SYRINGE SC SCH (09:00)
[2022-04-12] MEDS: metFORMIN HYDROCHLORIDE 500 MG TAB PO SCH ×2 (09:00→20:23)
[2022-04-12 13:00] VITALS: BP 116/67
[2022-04-12 17:00] VITALS: BP 126/66
[2022-04-12] MEDS: INSULIN LANTUS (GLARGINE) 1 /0.01ml (100units/ml) SC SCH (21:41)
[2022-04-12 22:00] VITALS: BP 123/57
[2022-04-13] MEDS: VANCOMYCIN 1GM/250ML 250 ML IV SCH ×2 (04:55→15:50)
[2022-04-13 05:00] VITALS: BP 134/84
[2022-04-13] MEDS: PIPERACILLIN-TAZO 4.5GM 100 ML IV SCH ×3 (05:00→22:52)
[2022-04-13] MEDS: ACCU-CHEK COMFORT CURVE STRIP VI SCH ×4 (06:24→22:53)
[2022-04-13] MEDS: InsuLIN REG 1unit/0.01ml Soln (100units/ml) SC SCH ×4 (06:32→22:52)
[2022-04-13] MEDS ORDERED: fentaNYL CITRATE 100 MCG/2 ML VL ONE (07:11)
[2022-04-13] MEDS ORDERED: MIDAZOLAM HCL 2MG/2ML 2ml VIAL (1mg/ml) ONE (07:12)
[2022-04-13] MEDS ORDERED: PROPOFOL 10 MG/ML 20 ML IV ONE (07:12)
[2022-04-13] MEDS: Pro-Stat SF 30ml Vanilla PO SCH ×2 (08:00→17:56)
[2022-04-13] MEDS ORDERED: PHENYLEPHRINE HCL 10 MG/ML VL ONE (08:42)
[2022-04-13] MEDS ORDERED: ePHEDrine SULFATE 50 MG/ML AMP ONE (08:42)
[2022-04-13] MEDS ORDERED: ePHEDrine SULFATE 50 MG/ML AMP IV PRN (09:15)
[2022-04-13] MEDS ORDERED: METOCLOPRAMIDE HCL 5MG/ml INJ 2ml VIAL IV PRN (09:15)
[2022-04-13] MEDS ORDERED: HYDROmorphone HCL 2 MG/ML VL/or syr IV PRN ×2 (09:15)
[2022-04-13] MEDS: metFORMIN HYDROCHLORIDE 500 MG TAB PO SCH ×2 (09:48→17:46)
[2022-04-13] MEDS: ENOXAPARIN SOD 40 MG/0.4 ML SYRINGE SC SCH (09:48)
[2022-04-13] MEDS: HYDROcodone-ACET 10/325MG TAB PO PRN ×2 (10:05→18:07)
[2022-04-13 13:22] VITALS: BP 158/47
[2022-04-13 13:47] LABS: Basophils # (auto) 0.1 10 ^3/uL (0-0.2); Basophils % (auto) 0.9 % (0.0-2.0); Eosinophils # (auto) 0.5 10 ^3/uL (0-0.8); Eosinophils % (auto) 3.3 % (0.0-7.0); Hematocrit 30.4 % (41.0-53.0); Hemoglobin 10.2 g/dL (13.5-17.5); Lymphocytes # (auto) 0.8 10 ^3/uL (0.4-5.4); Lymphocytes % (auto) 5.7 % (10.0-50.0); Mean Corpuscular Hemoglobin 28.3 pg (28.0-32.0); Mean Corpuscular Hgb Conc. 33.6 g/dL (32.0-36.0); Mean Corpuscular Volume 84.3 fL (80.0-100.0); Monocytes # (auto) 0.9 10 ^3/uL (0-1.3); Monocytes % (auto) 6.5 % (0.0-12.0); Neutrophils # (auto) 12.2 10 ^3/uL (1.6-8.6); Neutrophils % (auto) 83.6 % (37.0-80.0); Red Blood Cells 3.61 10^6/uL (4.5-5.90); Red Cell Distribution Width 13.7 % (11.8-14.3); White Blood Cell 14.6 10^3/uL (4.4-10.8)
[2022-04-13 17:00] VITALS: BP 120/35
[2022-04-13 22:00] VITALS: BP 131/66
[2022-04-13] MEDS: INSULIN LANTUS (GLARGINE) 1 /0.01ml (100units/ml) SC SCH (23:31)
[2022-04-14] MEDS ORDERED: LINE1TAB6 PO (03:09)
[2022-04-14] MEDS ORDERED: LEVO-28 PO (03:09)
[2022-04-14] MEDS: VANCOMYCIN 1GM/250ML 250 ML IV SCH ×2 (04:10→16:34)
[2022-04-14] MEDS: PIPERACILLIN-TAZO 4.5GM 100 ML IV SCH ×3 (04:58→20:42)
[2022-04-14] MEDS: ACCU-CHEK COMFORT CURVE STRIP VI SCH ×4 (06:52→22:10)
[2022-04-14] MEDS: InsuLIN REG 1unit/0.01ml Soln (100units/ml) SC SCH ×4 (06:53→22:00)
[2022-04-14] MEDS: Pro-Stat SF 30ml Vanilla PO SCH ×2 (08:00→18:10)
[2022-04-14 09:00] VITALS: BP 121/62
[2022-04-14] MEDS: ENOXAPARIN SOD 40 MG/0.4 ML SYRINGE SC SCH (09:12)
[2022-04-14] MEDS: metFORMIN HYDROCHLORIDE 500 MG TAB PO SCH ×2 (09:12→18:10)
[2022-04-14 13:00] VITALS: BP 124/63
[2022-04-14 17:00] VITALS: BP 116/55
[2022-04-14] MEDS: ACETAMINOPHEN 325 MG TAB PO PRN (20:43)
[2022-04-14 22:00] VITALS: BP 124/55
[2022-04-14] MEDS: ASCORBIC ACID 500 MG TAB PO SCH (22:10)
[2022-04-14] MEDS: INSULIN LANTUS (GLARGINE) 1 /0.01ml (100units/ml) SC SCH (22:19)
[2022-04-15] MEDS: VANCOMYCIN 1GM/250ML 250 ML IV SCH ×2 (04:32→16:00)
[2022-04-15 05:00] VITALS: BP 121/62
[2022-04-15] MEDS: PIPERACILLIN-TAZO 4.5GM 100 ML IV SCH ×3 (05:00→21:26)
[2022-04-15] MEDS: ACCU-CHEK COMFORT CURVE STRIP VI SCH ×4 (06:50→21:20)
[2022-04-15] MEDS: InsuLIN REG 1unit/0.01ml Soln (100units/ml) SC SCH ×4 (06:51→21:11)
[2022-04-15 09:00] VITALS: BP 125/61
[2022-04-15] MEDS: ENOXAPARIN SOD 40 MG/0.4 ML SYRINGE SC SCH (09:27)
[2022-04-15] MEDS: metFORMIN HYDROCHLORIDE 500 MG TAB PO SCH ×2 (09:28→18:00)
[2022-04-15] MEDS: ACETAMINOPHEN 325 MG TAB PO PRN ×2 (09:28→21:26)
[2022-04-15] MEDS: ASCORBIC ACID 500 MG TAB PO SCH ×2 (09:28→21:26)
[2022-04-15] MEDS: ZINC SULFATE 220mg CAP or TAB PO SCH (09:29)
[2022-04-15] MEDS: CHOLECALCIFEROL (VITD3) 2,000 UNIT CAP/TAB PO SCH (09:29)
[2022-04-15] MEDS: Pro-Stat SF 30ml Vanilla PO SCH ×2 (09:29→18:00)
[2022-04-15] MEDS ORDERED: VANCOMYCIN PER PHARMACY 0 MG IV SCH (10:30)
[2022-04-15 11:18] LABS: Basophils # (auto) 0 10 ^3/uL (0-0.2); Basophils % (auto) 0.4 % (0.0-2.0); Eosinophils # (auto) 0.8 10 ^3/uL (0-0.8); Eosinophils % (auto) 7.4 % (0.0-7.0); Hematocrit 26.6 % (41.0-53.0); Hemoglobin 9.3 g/dL (13.5-17.5); Lymphocytes # (auto) 0.8 10 ^3/uL (0.4-5.4); Mean Corpuscular Hemoglobin 29.1 pg (28.0-32.0); Mean Corpuscular Volume 83.1 fL (80.0-100.0); Monocytes # (auto) 0.8 10 ^3/uL (0-1.3); Monocytes % (auto) 7.4 % (0.0-12.0); Neutrophils # (auto) 8.4 10 ^3/uL (1.6-8.6); Neutrophils % (auto) 77.8 % (37.0-80.0); Red Cell Distribution Width 13.9 % (11.8-14.3); White Blood Cell 10.8 10^3/uL (4.4-10.8)
[2022-04-15 11:59] LABS: BUN/Creatinine Ratio 23.3; Calcium 8.4 mg/dL (8.5-10.1); Potassium 4.6 mmol/L (3.5-5.1)
[2022-04-15 13:00] VITALS: BP 98/56
[2022-04-15 17:00] VITALS: BP 122/62
[2022-04-15] MEDS: INSULIN LANTUS (GLARGINE) 1 /0.01ml (100units/ml) SC SCH (21:19)
[2022-04-15 22:00] VITALS: BP 132/6
[2022-04-16] MEDS ORDERED: CLIN300C8 PO (02:12)
[2022-04-16] MEDS: VANCOMYCIN 1GM/250ML 250 ML IV SCH (04:29)
[2022-04-16 05:00] VITALS: BP 119/59
[2022-04-16] MEDS: PIPERACILLIN-TAZO 4.5GM 100 ML IV SCH (05:00)
[2022-04-16] MEDS: InsuLIN REG 1unit/0.01ml Soln (100units/ml) SC SCH ×2 (07:00→12:27)
[2022-04-16 07:08] LABS: Potassium 4.5 mmol/L (3.5-5.1)
[2022-04-16 07:18] LABS: Albumin 2.2 g/dL (3.4-5.0); BUN/Creatinine Ratio 25.3; Bilirubin, Total 0.5 mg/dL (0.2-1.0); Calcium 8.4 mg/dL (8.5-10.1); Total Protein 6.1 g/dL (6.4-8.2)
[2022-04-16] MEDS: ACCU-CHEK COMFORT CURVE STRIP VI SCH ×2 (07:27→11:30)
[2022-04-16] MEDS: Pro-Stat SF 30ml Vanilla PO SCH (08:00)
[2022-04-16 09:00] VITALS: BP 123/61
[2022-04-16] MEDS: ASCORBIC ACID 500 MG TAB PO SCH (10:28)
[2022-04-16] MEDS: ZINC SULFATE 220mg CAP or TAB PO SCH (10:28)
[2022-04-16] MEDS: metFORMIN HYDROCHLORIDE 500 MG TAB PO SCH (10:28)
[2022-04-16] MEDS: ACETAMINOPHEN 325 MG TAB PO PRN (10:28)
[2022-04-16] MEDS: CHOLECALCIFEROL (VITD3) 2,000 UNIT CAP/TAB PO SCH (10:28)
[2022-04-16] MEDS: ENOXAPARIN SOD 40 MG/0.4 ML SYRINGE SC SCH (10:29)
[2022-04-16 13:00] VITALS: BP 131/64
[2022-04-16 16:40] VITALS: BP 129/74
[2022-04-16 17:00] VITALS: BP 127/72
== END 2022-04-16 18:58 | disposition home or self-care (01) | DRG 720 ==
LOC: ER 08:26 → TELE 19:00 → TELE-WESTW 03-23 00:56 → WEST WING 03-26 14:44
PROVIDERS: ADMIT Registered Nurse; ATTEND Nurse Practitioner Acute Care
PROC: 0JBF0ZZ Excision of Left Upper Arm Subcutaneous Tissue and Fascia, Open Approach (ICD-10-PCS; 2022-04-07)
PROC: 0JBF0ZZ Excision of Left Upper Arm Subcutaneous Tissue and Fascia, Open Approach (ICD-10-PCS; principal; 2022-04-13 07:24)
DX: A41.89 Other specified sepsis (principal); U07.1 COVID-19; E43 Unspecified severe protein-calorie malnutrition; E88.09 Other disorders of plasma-protein metabolism, not elsewhere classified; E78.5 Hyperlipidemia, unspecified; E11.9 Type 2 diabetes mellitus without complications; D64.9 Anemia, unspecified; F15.20 Other stimulant dependence, uncomplicated; L02.414 Cutaneous abscess of left upper limb; L03.114 Cellulitis of left upper limb; R65.20 Severe sepsis without septic shock; I10 Essential (primary) hypertension; Z86.73 Personal history of transient ischemic attack (TIA), and cerebral infarction without residual deficits; Z79.4 Long term (current) use of insulin; Z68.24 Body mass index [BMI] 24.0-24.9, adult
CPT/HCPCS: 36415; 71045; 73200; 73201; 73206; 73221; 80048; 80053; 80061; 80069; 80202; 80307; 81001; 82565; 82947; 82962; 83036; 83605; 83735; 84484; 85007; 85025; 85027; 85048; 85610; 85652; 85730; 86141; 86703; 86850; 86900; 86901; 87040; 87070; 87075; 87081; 87205; 87426; 93005; 96365; 96368; 96375; G0378; J0696; J1100; J1815; J1885; J2001; J2250; J2405; J2543; J2704; J3490; J7060

== ENCOUNTER 2023-08-27 08:15 | Emergency (ER) | payer MEDICAID ==
[~2023-08-27] VITALS: Ht 165.1 cm; Wt 171.0 kg
[~2023-08-27 08:15] MED LIST: CLIN300C70 PO; GABA250S7 PO; INSLANTI SC; METF-370 PO
[2023-08-27 08:54] VITALS: BP 176/83; PULSE 78; RESP 16; TEMP 98; O2SAT 98
[2023-08-27] MEDS ORDERED: CEPH500C PO (08:58)
[2023-08-28 20:06] LABS: Chlamydia Trachomatis, NAA Negative (Negative); Neisseria gonorrhoeae, NAA Negative (Negative)
== END 2023-08-27 09:17 | disposition home or self-care (01) ==
LOC: ER 08:15
DX: M79.675 Pain in left toe(s) (principal); I10 Essential (primary) hypertension; E11.9 Type 2 diabetes mellitus without complications; Z20.2 Contact with and (suspected) exposure to infections with a predominantly sexual mode of transmission; Z86.73 Personal history of transient ischemic attack (TIA), and cerebral infarction without residual deficits; Z79.4 Long term (current) use of insulin; Z79.2 Long term (current) use of antibiotics; Z79.899 Other long term (current) drug therapy
CPT/HCPCS: 82962

== ENCOUNTER 2024-08-01 15:27 | Emergency (ER) | payer MEDICAID ==
[~2024-08-01] VITALS: Ht 162.6 cm; Wt 82.2 kg
[~2024-08-01 15:27] MED LIST changes: +CEPH500C PO; +CLIN1CAP70 PO; -CLIN300C70 PO
[2024-08-01] MEDS ORDERED: DOXYCYCLINE 100MG/100ML 100 ML IV ONE (18:30)
[2024-08-01 18:33] VITALS: BP 165/90; PULSE 74; RESP 18; TEMP 97.6; O2SAT 98
--- NOTE | 2024-08-01 18:34 | ED.PDOC ---
History of Present Illness(SKN HPI Comments 54-year-old male presents to ER for wound check. Patient with past medical history significant for diabetes reports he has been experiencing pain/redness/swelling to right 2nd toe x 2 days and presents to ER today for wound check. States that he removed his right 2nd toenail himself at home using tweezers at onset of symptoms two days ago. Patient presents to ER ambulatory on arrival, with steady gait, in no distress and reports he is following up with home health scheduler in eight days. Denies fever, body aches, chills, skin drainage, numbness/tingling or any further symptoms/complaints Chief Complaint: Wound Check Time Seen by MD: 18:09 Primary Care Provider: BABAR History of Present Illness: Nurses Notes, Medications, Allergies Allergies: Coded Allergies: No Known Drug Allergy (Verified Allergy, Unknown, 03/22/22) Home Meds Active Scripts Doxycycline (Monohydrate) (Doxycycline) 100 Mg Cap, 100 MG PO BID for 14 Days, #28 CAP 0 Refills Prov:REHANA DILLARD 08/01/24 Cephalexin Monohydrate (Cephalexin) 500 Mg Cap, 1 CAP PO QID, #32 CAP Prov:JAMES BOB 08/27/23 Clindamycin Hcl (Clindamycin Hcl) 300 Mg Cap, 300 MG PO QID for 14 Days, #42 CAP Prov:DANIELLE SCHULZ MD 04/16/22 Reported Medications Metformin Hydrochloride (Metformin Hcl) 500 Mg Tab, 1 TAB PO BID, #60 TAB 3 Refills 03/23/22 Insulin Glargine (Lantus) 100 Unit/Ml Inj, 100 UNIT SC, INJ 03/23/22 Gabapentin (GABAPENTIN) 250 Mg/5 Ml Cassie, 250 MG PO, ML 03/23/22 Information Source: Patient Mode of Arrival: Ambulatory Tetanus: UTD Past Medical History PAST MEDICAL HISTORY: CVA, DM, HTN Surgical History: Denies all surgeries Family History Family History: Unknown Social History Smoker: Non-Smoker Alcohol: Denies ETOH Use Drugs: Denies Drug Use Lives In: Home Constitutional: denies: chills, diaphoresis, fatigue, fever, malaise, sweats, weakness, others EENTM: denies: blurred vision, double vision, ear bleeding, ear discharge, ear drainage, ear pain, ear ringing, eye pain, eye redness, hearing loss, mouth pain, mouth swelling, nasal discharge, nose bleeding, nose congestion, nose pain, photophobia, tearing, throat pain, throat swelling, voice changes, others Respiratory: denies: cough, hemoptysis, orthopnea, SOB at rest, shortness of breath, SOB with excertion, stridor, wheezing, others Cardiovascular: denies: chest pain, dizzy spells, diaphoresis, Dyspnea on exertion, edema, irregular heart beat, left arm pain, lightheadedness, palpitations, PND, syncope, others Gastrointestinal: denies: abdomen distended, abdominal pain, blood streaked bowels, constipated, diarrhea, dysphagia, difficulty swallowing, hematemesis, melena, nausea, poor appetite, poor fluid intake, rectal bleeding, rectal pain, vomiting, others Genitourinary: denies: burning, dysuria, flank pain, frequency, hematuria, incontinence, penile discharge, penile sore, pain, testicle pain, testicle swelling, urgency, others Neurological: denies: dizziness, fainting, headache, left sided numbness, left sided weakness, numbness, paresthesia, pre-existing deficit, right sided numbness, right sided weakness, seizure, speech problems, tingling, tremors, weakness, others Musculoskeletal: denies: back pain, gout, joint pain, joint swelling, muscle pa in, muscle stiffness, neck pain, others Integumetry: reports: others ( STATED IN HPI) Allergic/Immunocompromised: denies: Difficulty Healing, Frequent Infections, Hives, Itching, others Hematologic/Lymphatic: denies: anemia, blood clots, easy bleeding, easy bruising, swollen glands, others Endocrine: denies: excessive hunger, excessive sweating, excessive thirst, excessive urination, flushing, intolerance to cold, intolerance to heat, unexplained weight gain, unexplained weight loss, others Psychiatric: denies: anxiety, bipolar disorder, depression, hopeless, panic disorder, schizophrenia, sleepless, suicidal, others Physical Exam General Appearance: No Apparent Distress HEENT: PERRL/EOMI Neck: Full Range of Motion, Non-Tender, Normal Respiratory: Chest Non-Tender, Lungs Clear, No Accessory Muscle Use, No Respiratory Distress, Normal Breath Sounds Cardiovascular: No Murmur, No Gallop, Regular Rate/Rhythm Breast Exam: Deferred Gastrointestinal: NOT DONE Genitalia: Deferred Pelvic: Deferred Rectal: Deferred Extremities: Normal capillary refill, Normal range of motion Musculoskeletal : Extremity Location: Toe 2 (NAIL AVULSION NOTED TO RIGHT 2ND TOE WITH MILD SURROUNDING SWELLING/ERYTHEMA/TTP. NO FLUCTUANCE/DRAINAGE/RED STREAKING NOTED. PATIENT ABLE TO MOVE ALL TOES OF RIGHT FOOT. PULSES INTACT. STEADY GAIT APPRECIATED) Neurologic: Alert, controlled atmospheric furnace brazer II-XII nml as Tested, No Motor Deficits, Normal Affect, Normal Mood, No Sensory Deficits Cerebellar Function: Normal Reflexes: Normal Skin: Dry, Warm Peripheral Pulses: 2+ dorsalis pedis (R), 2+ dorsalis pedis (L) Lymphatic: No Adenopathy Was a procedure done? Was a procedure done?: No Sedation Sedation?: No Differential Diagnosis (INTG) Differential Diagnosis: Laceration, Open Fracture, Osteomyelitis, Puncture Wou nd, Retained Foreign Body X-Ray, Labs, Meds, VS Vital Signs Date Time Temp Pulse Resp B/P (MAP) Pulse Ox O2 Delivery O2 Flow Rate FiO2 08/01/24 18:33 74 18 98 Room Air 08/01/24 18:33 97.6 74 18 165/90 (115) 98 97.6 08/01/24 15:46 97.9 88 17 150/92 (111) 97 Lab Test 08/01/24 18:59 Range/Units White Blood Count 9.6 4.4-10.8 10^3/uL Red Blood Count 5.40 4.5-5.90 10^6/uL Hemoglobin 15.9 13.5-17.5 g/dL Hematocrit 47.4 41.0-53.0 % Mean Corpuscular Volume 87.8 80.0-100.0 fL Mean Corpuscular Hemoglobin 29.4 28.0-32.0 pg Mean Corpuscular Hemoglobin Concent 33.4 32.0-36.0 g/dL Red Cell Distribution Width 13.5 11.8-14.3 % Platelet Count 230 140-450 10^3/uL Mean Platelet Volume 9.7 6.9-10.8 fL Neutrophils (%) (Auto) 62.3 37.0-80.0 % Lymphocytes (%) (Auto) 26.7 10.0-50.0 % Monocytes (%) (Auto) 7.4 0.0-12.0 % Eosinophils (%) (Auto) 2.6 0.0-7.0 % Basophils (%) (Auto) 1.0 0.0-2.0 % Neutrophils # (Auto) 6.0 1.6-8.6 10 ^3/uL Lymphocytes # (Auto) 2.6 0.4-5.4 10 ^3/uL Monocytes # (Auto) 0.7 0-1.3 10 ^3/uL Eosinophils # (Auto) 0.2 0-0.8 10 ^3/uL Basophils # (Auto) 0.1 0-0.2 10 ^3/uL Nucleated Red Blood Cells 0.1 % Sodium Level 137 136-145 mmol/L Potassium Level 4.6 3.5-5.1 mmol/L Chloride Level 106 98-107 mmol/L Carbon Dioxide Level 23 20-31 mmol/L Anion Gap 8 5-15 Blood Urea Nitrogen 17 9-23 mg/dL Creatinine 1.00 0.700-1.30 mg/dL Glomerular Filtration Rate Calc 88 >90 mL/min BUN/Creatinine Ratio 17.0 10.0-20.0 Serum Glucose 245 H 74-106 mg/dL Calcium Level 9.7 8.7-10.4 mg/dL Current Medications Medications (Trade) Dose Ordered Sig/Isaiah Route Start Time Stop Time Status Last Admin Ceftriaxone Sodium (Rocephin) 1,000 mg ONCE ONCE IM 08/01/24 19:30 08/01/24 19:32 DC 08/01/24 19:48 PATIENT: DENISSE CLEARYACCT: [id number]: [id number] : 1970 LOC: ER ROOM / BED: / AGE / SEX: 54 / M ADM STATUS: REG ER SERVICE 0645 ORDERING PHYSICIAN: REHANA DILLARD PROCEDURE(s): RTOE2 - R 2ND TOE XRAY REASON: right 2nd toe pain ORDER NUMBER(s): [id number], ACCESSION NUMBER(s): [id number] CLINICAL INDICATION: right 2nd toe pain TECHNIQUE: 2 radiographic views of the right 2nd toe were obtained. Comparison: None FINDINGS/IMPRESSION: There is cortical irregularity of the tuft of the 2nd toe with suggested distal 2nd toe wound. Possible distal 2nd toe soft tissue edema. If there is concern for osteomyelitis, MRI should be considered for further evaluation. No evidence of acute traumatic fractures or dislocations. Vascular calcification is noted. ATED BY: CRISSY SORIANO DO DICTATED DATE/TIME: 08/01/241917 SIGNED BY: CRISSY SORIANO DO SIGNED DATE/TIME: 08/01/241917 CC: HEP-LOCK IV ORDERED ROCEPHIN 1 G IV ORDERED - PATIENT REFUSED DOXYCYCLINE 100 MG IV ORDERED - PATIENT REFUSED ROCEPHIN 1 G IM ORDERED WOUND CARE/CLEANING DISCUSSED AND ADVISED CBC REVIEWED-UNREMARKABLE BMP REVIEWED-SERUM GLUCOSE 245 WOUND CARE/CLEANING DISCUSSED AND ADVISED ADVISED TO CONTINUE DIABETES MEDICATIONS PRESCRIBED ADVISED TO CONTINUE TO MONITOR GLUCOSE LEVELS CLOSELY AT HOME ADVISED TO FOLLOW UP WITH PCP AND EQUIPMENT DRIVER IN 1-2 DAYS PATIENT VERBALIZED UNDERSTANDING AND AGREEABLE WITH CURRENT PLAN OF CARE ADVISED TO RETURN TO ER IMMEDIATELY IF SYMPTOMS WORSEN Images Reviewed?: Images reviewed and evaluated by me Time of 1ST Reevaluation: 18:32 Reevaluation 1ST: N/A Patient Education/Counseling: Diagnosis, Treatment, Prognosis, Need For Follow Up Family Education/Counseling: No Family Present Departure 1 Departure Time of Disposition: 20:00 Impression: Primary Impression: Cellulitis of toe of right foot Disposition: 01 HOME / SELF CARE / HOMELESS Condition: Stable e-Prescriptions Doxycycline (Monohydrate) (Doxycycline) 100 Mg Cap 100 MG PO BID for 14 Days, #28 CAP 0 Refills Prov: REHANA DILLARD 08/01/24 Discharged With: Self Critical Care Note Critical Care Time?: No Stability Stability form required: No Heart Score Heart Score: Heart Score Response (Comments) Value History N/A 0 EKG N/A 0 Age N/A 0 Risk Factors N/A 0 Troponin N/A 0 Total 0 REHANA DILLARD Aug 01, 2024 18:34
--- NOTE | 2024-08-01 19:20 | DVH ---
CLINICAL INDICATION: right 2nd toe pain TECHNIQUE: 2 radiographic views of the right 2nd toe were obtained. Comparison: None FINDINGS/IMPRESSION: There is cortical irregularity of the tuft of the 2nd toe with suggested distal 2nd toe wound. Possib le distal 2nd toe soft tissue edema. If there is concern for osteomyelitis, MRI should be considered for further evaluation. No evidence of acute traumatic fractures or dislocations. Vascular calcification is noted.
[2024-08-01] MEDS: cefTRIAXone 1GM/50ML D5W 50 ML IV ONE (19:21)
[2024-08-01 19:39] LABS: Basophils # (auto) 0.1 10 ^3/uL (0-0.2); Eosinophils # (auto) 0.2 10 ^3/uL (0-0.8); Eosinophils % (auto) 2.6 % (0.0-7.0); Hematocrit 47.4 % (41.0-53.0); Hemoglobin 15.9 g/dL (13.5-17.5); Lymphocytes # (auto) 2.6 10 ^3/uL (0.4-5.4); Lymphocytes % (auto) 26.7 % (10.0-50.0); Mean Corpuscular Hemoglobin 29.4 pg (28.0-32.0); Mean Corpuscular Hgb Conc. 33.4 g/dL (32.0-36.0); Mean Corpuscular Volume 87.8 fL (80.0-100.0); Monocytes # (auto) 0.7 10 ^3/uL (0-1.3); Monocytes % (auto) 7.4 % (0.0-12.0); Neutrophils % (auto) 62.3 % (37.0-80.0); Nucleated Red Blood Cells % 0.1 %; Platelet Count (auto) 230 10^3/uL (140-450); Red Cell Distribution Width 13.5 % (11.8-14.3); White Blood Cell 9.6 10^3/uL (4.4-10.8)
[2024-08-01] MEDS ORDERED: LIDOCAINE 2%HCL (LOCAL ANESTH.) INJ 20ML MDV ONE (19:42)
[2024-08-01 19:47] LABS: Chloride 106 mmol/L (98-107); Potassium 4.6 mmol/L (3.5-5.1); Sodium 137 mmol/L (136-145)
[2024-08-01 19:48] LABS: Anion Gap 8 (5-15); Calcium 9.7 mg/dL (8.7-10.4); Carbon Dioxide 23 mmol/L (20-31)
[2024-08-01] MEDS: cefTRIAXone SOD 1,000 MG VL IM ONE (19:48)
[2024-08-01 19:53] LABS: Blood Urea Nitrogen 17 mg/dL (9-23)
[2024-08-01 19:56] LABS: Glucose 245 mg/dL (74-106)
[2024-08-01] MEDS ORDERED: DOXY100C79 PO (20:04)
== END 2024-08-01 20:08 | disposition home or self-care (01) ==
LOC: ER 15:27
DX: L03.031 Cellulitis of right toe (principal); E11.9 Type 2 diabetes mellitus without complications; I10 Essential (primary) hypertension; Z86.73 Personal history of transient ischemic attack (TIA), and cerebral infarction without residual deficits; Z79.899 Other long term (current) drug therapy
CPT/HCPCS: 36415; 73660; 80048; 85025; 96372; J0696

== ENCOUNTER 2024-08-26 16:15 | Emergency (ER) | payer MEDICAID ==
[~2024-08-26] VITALS: Ht 162.6 cm; Wt 81.7 kg
[~2024-08-26 16:15] MED LIST changes: +DOXY100C79 PO
[2024-08-26 17:21] VITALS: BP 138/82; PULSE 97; RESP 18; TEMP 98.5; O2SAT 98
--- NOTE | 2024-08-26 17:29 | ED.PDOC ---
Musculoskeletal HPI Comments A 54 YEAR OLD MALE PRESENTS TO THE ED WITH COMPLAINT OF LEFT ANKLE PAIN. PATIENT STATES HE GOT UP OUT OF BED TODAY AND ACCIDENTALLY ROLLED HIS LEFT ANKLE. PATIENT REPORTS HE IS NOW EXPERIENCING LEFT ANKLE PAIN THAT IS WORSE WITH MOVEMENT AND WHEN BEARING WEIGHT. PATIENT DENIES FEVER, CHILLS, SHORTNESS OF BREATH, CHEST PAIN, ABDOMINAL PAIN, NAUSEA, VOMITING, HEADACHE, OR OTHER COMPLAINTS. NO OTHER SYMPTOMS OR MODIFYING FACTORS AT THIS TIME. PATIENT IS ALERT, ORIENTED X 4, AND HAS STEADY GAIT. Chief Complaint: Lower Extremity Time Seen by MD: 17:18 Primary Care Provider: GERARD Reviewed Notes: Nurses Notes, Medications, Allergies Allergies: Coded Allergies: No Known Drug Allergy (Verified Allergy, Unknown, 03/22/22) Home Meds Active Scripts Ibuprofen (Ibuprofen) 800 Mg Tab, 1 TAB PO TID, #30 TAB Prov:JAMES BOB 08/26/24 Doxycycline (Monohydrate) (Doxycycline) 100 Mg Cap, 100 MG PO BID for 14 Days, #28 CAP 0 Refills Prov:REHANA DILLARD 08/01/24 Cephalexin Monohydrate (Cephalexin) 500 Mg Cap, 1 CAP PO QID, #32 CAP Prov:JAMES BOB 08/27/23 Clindamycin Hcl (Clindamycin Hcl) 300 Mg Cap, 300 MG PO QID for 14 Days, #42 CAP Prov:DANIELLE SCHULZ MD 04/16/22 Reported Medications Metformin Hydrochloride (Metformin Hcl) 500 Mg Tab, 1 TAB PO BID, #60 TAB 3 Refills 03/23/22 Insulin Glargine (Lantus) 100 Unit/Ml Inj, 100 UNIT SC, INJ 03/23/22 Gabapentin (GABAPENTIN) 250 Mg/5 Ml Cassie, 250 MG PO, ML 03/23/22 Information Source: Patient Mode of Arrival: Ambulatory Location: Left Extremity Location: Ankle Timing: Hours Prehospital treatment: None Severity: Moderate Able to Move Extremity: Yes Bear Weight: Limited Pain: Moderate Mechanism: Twisting Circumstances: Accident Onset of Symptoms: After Trauma Symptoms: Pain DVT Risk Factors: NONE Last Tetanus: Unknown Associated signs and symptoms: Ankle pain Past Medical History PAST MEDICAL HISTORY: CVA, DM, HTN Surgical History: Denies all surgeries Family History Family History: Reviewed,noncontributory to illness Social History Smoker: Non-Smoker Alcohol: Denies ETOH Use Drugs: Denies Drug Use Lives In: Home Constitutional: denies: chills, diaphoresis, fatigue, fever, malaise, sweats, weakness, others EENTM: denies: blurred vision, double vision, ear bleeding, ear discharge, ear drainage, ear pain, ear ringing, eye pain, eye redness, hearing loss, mouth pain, mouth swelling, nasal discharge, nose bleeding, nose congestion, nose pain, photophobia, tearing, throat pain, throat swelling, voice changes, others Respiratory: denies: cough, hemoptysis, orthopnea, SOB at rest, shortness of breath, SOB with excertion, stridor, wheezing, others Cardiovascular: denies: chest pain, dizzy spells, diaphoresis, Dyspnea on exertion, edema, irregular heart beat, left arm pain, lightheadedness, palpitations, PND, syncope, others Gastrointestinal: denies: abdomen distended, abdominal pain, blood streaked bowels, constipated, diarrhea, dysphagia, difficulty swallowing, hematemesis, melena, nausea, poor appetite, poor fluid intake, rectal bleeding, rectal pain, vomiting, others Genitourinary: denies: burning, dysuria, flank pain, frequency, hematuria, incontinence, penile discharge, penile sore, pain, testicle pain, testicle swelling, urgency, others Neurological: denies: dizziness, fainting, headache, left sided numbness, left sided weakness, numbness, paresthesia, pre-existing deficit, right sided numbness, right sided weakness, seizure, speech problems, tingling, tremors, weakness, others Musculoskeletal: reports: joint pain, joint swelling, others (LEFT ANKLE PAIN); denies: back pain, gout, muscle pain, muscle stiffness, neck pain Integumetry: denies: bruises, change in color, change in hair/nails, dryness, laceration, lesions, lumps, rash, wounds, others Allergic/Immunocompromised: denies: Difficulty Healing, Frequent Infections, Hives, Itching, others Hematologic/Lymphatic: denies: anemia, blood clots, easy bleeding, easy bruising, swollen glands, others Endocrine: denies: excessive hunger, excessive sweating, excessive thirst, excessive urination, flushing, intolerance to cold, intolerance to heat, unexplained weight gain, unexplained weight loss, others Psychiatric: denies: anxiety, bipolar disorder, depression, hopeless, panic disorder, schizophrenia, sleepless, suicidal, others All Other Systems: Reviewed and Negative Physical Exam General Appearance: No Apparent Distress, Normal HEENT: Normal ENT Inspection, PERRL/EOMI, Pharynx Normal, TMs Normal Neck: Full Range of Motion, Non-Tender, Normal, Normal Inspection Respiratory: Chest Non-Tender, Lungs Clear, No Accessory Muscle Use, No Respiratory Distress, Normal Breath Sounds Cardiovascular: No Edema, No JVD, No Murmur, No Gallop, Normal Peripheral Pulses, Regular Rate/Rhythm Breast Exam: Deferred Gastrointestinal: No Organomegaly, Non Tender, No Pulsatile Mass, Normal Bowel Sounds, Soft Genitalia: Deferred Pelvic: Deferred Rectal: Deferred Extremities: Decreased range of motion (SLIGHTLY. ), No calf tenderness, Normal capillary refill, No pedal edema, Tender (TENDERNESS AND MILD SWELLING ON LEFT ANKLE, NO BONY TENDERNESS AND DEFORMITY. ) Musculoskeletal : Apperance: Normal Neurologic: Alert, veneer layer II-XII nml as Tested, No Motor Deficits, Normal Affect, Normal Mood, No Sensory Deficits Cerebellar Function: Normal Reflexes: Normal Skin: Dry, Normal Color, Warm Peripheral Pulses: 2+ carotid (R), 2+ carotid (L), 2+ dorsalis pedis (R), 2+ dorsalis pedis (L) Lymphatic: No Adenopathy Was a procedure done? Was a procedure done?: No Differential Diagnosis EXT Differential Diagnosis: Fracture, Sprain, Dislocation, Contusion, Strain, Bursitis X-Ray, Labs, Meds, VS Vital Signs Date Time Temp Pulse Resp B/P (MAP) Pulse Ox O2 Delivery O2 Flow Rate FiO2 08/26/24 17:21 98.5 97 18 138/82 (100) 98 98.5 08/26/24 17:21 97 18 98 Room Air 08/26/24 16:43 98.5 97 18 138/82 (100) 98 98.5 Current Medications Medications (Trade) Dose Ordered Sig/Isaiah Route Start Time Stop Time Status Last Admin Acetaminophen/ Hydrocodone Bitart ([place] 5/325MG Tab) 1 tab ONCE ONCE PO 08/26/24 17:45 08/26/24 17:46 DC 08/26/24 17:43 PATIENT: DENISSE CLEARYACCT: [id number]: [id number] : 1970 LOC: ER ROOM / BED: / AGE / SEX: 54 / M ADM STATUS: REG ER SERVICE 99 ORDERING PHYSICIAN: KARLEE BLACKWELL PAC PROCEDURE(s): LANKL - L ANKLE 3 VIEW REASON: INJURY ORDER NUMBER(s): [id number], ACCESSION NUMBER(s): [id number] EXAM: XY L ANKLE 3 VIEW CLINICAL HISTORY: INJURY COMPARISON: None TECHNIQUE: XY L ANKLE 3 VIEW Findings/Impression: 3 views of the left ankle. There is no definite evidence of an acute fracture, dislocation, blastic, or lytic lesions. No radiopaque foreign bodies. Moderate to marked atherosclerosis. No joint effusion. Mild soft tissue edema. If symptoms persist or worsen, recommend repeat radiographs in 7-[address] for further evaluation. ATED BY: JERI MCCLELLAND DO DICTATED DATE/TIME: 08/26/241735 SIGNED BY: JERI MCCLELLAND DO SIGNED DATE/TIME: 08/26/241735 CC: X-Ray, Labs, Meds, VS Comment EXTERNAL MEDICAL RECORDS REVIEWED: [NONE] INDEPENDENT HISTORIANS: [NONE] SOCIAL DETERMINANTS OF HEALTH: [NONE] LABS ORDERED: NONE REVIEWED AND INTERPRETED RESULTS: NONE IMAGING ORDERED: XR ANKLE LT: [INTERPRETED BY ME. NO ACUTE FINDINGS. NO FRACTURES OR DISLOCATION. PENDING RADIOLOGIST REPORT.] TREATMENTS ORDERED: [place] 5/325 MG P.O. PROCEDURES PERFORMED: NONE CRITICAL CARE TIME: NONE I HAVE DISCUSSED THE PATIENT WITH THE ATTENDING PHYSICIAN DR. LENNON AND HE AGREES WITH THE PATIENT'S PLAN OF CARE AND DISPOSITION. BASED ON HISTORY OF PRESENT ILLNESS, AND PHYSICAL EXAM, PATIENT WILL BE DISCHA RGED HOME. DISCUSSED PLAN FOR DISCHARGE HOME WITH RX [IBUPROFEN 800 MG]. MEDICATION WARNINGS GIVEN. SHARED DECISION MAKING: PATIENT INSTRUCTED TO FOLLOW UP WITH PRIMARY CARE PROVIDER IN 1-2 DAYS FOR RE-EVALUATION OF SYMPTOMS. PATIENT VERBALIZES UNDERSTANDING TO RETURN TO ED FOR NEW OR WORSENING SYMPTOMS OR IF FOLLOW UP WITH PCP CANNOT BE OBTAINED. PATIENT FEELS COMFORTABLE GOING HOME AT THIS TIME. ALL QUESTIONS ADDRESSED AT TIME OF DISCHARGE. Images Reviewed?: Images reviewed and evaluated by me Time of 1ST Reevaluation: 18:00 Reevaluation 1ST: Improved Patient Education/Counseling: Diagnosis, Treatment, Need For Follow Up Family Education/Counseling: Diagnosis, Treatment, Need For Follow Up Medical Screening: No EMC Exist At This Time Departure 1 Departure Time of Disposition: 18:00 Impression: Primary Impression: Sprain of left ankle Qualified Codes: S93.402A - Sprain of unspecified ligament of left ankle, initial encounter Disposition: HOME / SELF CARE / HOMELESS Condition: Stable Additional Instructions: FOLLOW-UP WITH PCP IN 1 TO 2 DAYS. TAKE MEDICATIONS PRESCRIBED. RETURN TO ED FOR ANY NEW OR WORSENING SYMPTOMS. e-Prescriptions Ibuprofen (Ibuprofen) 800 Mg Tab 1 TAB PO TID, #30 TAB Prov: JAMES BOB 08/26/24 Discharged With: Self Critical Care Note Critical Care Time?: No Stability Stability form required: No I personally scribed for JAMES BOB ([email or web address]) on 08/26/24 at 17:29. Electronically submitted by Jose Claudio (Submittable). I personally scribed for JAMES BOB ([email or web address]) on 08/26/24 at 17:38. Electronically submitted by Jose Claudio ([email or web address]). JAMES BOB Aug 26, 2024 17:29
--- NOTE | 2024-08-26 17:39 | DVH ---
EXAM: XY L ANKLE 3 VIEW CLINICAL HISTORY: INJURY COMPARISON: None TECHNIQUE: XY L ANKLE 3 VIEW Findings/Impression: 3 views of the left ankle. There is no definite evidence of an acute fracture, dislocation, blastic, or lytic lesions. No radiopaque foreign bodies. Moderate to marked atherosclerosis. No joint effusion. Mild soft tissue edema. If symptoms persist or worsen, recommend repeat radiographs in 7-[address] for further evalua tion.
[2024-08-26] MEDS ORDERED: IBUP-1456 PO (17:40)
[2024-08-26] MEDS: HYDROcodone-ACET 5/325MG TAB PO ONE (17:43)
== END 2024-08-26 17:55 | disposition home or self-care (01) ==
LOC: ER 16:15
DX: S93.402A Sprain of unspecified ligament of left ankle, initial encounter (principal); I10 Essential (primary) hypertension; E11.9 Type 2 diabetes mellitus without complications; Z86.73 Personal history of transient ischemic attack (TIA), and cerebral infarction without residual deficits; Z79.1 Long term (current) use of non-steroidal anti-inflammatories (NSAID); Z79.84 Long term (current) use of oral hypoglycemic drugs; Z79.4 Long term (current) use of insulin; Z79.899 Other long term (current) drug therapy; X50.1XXA Overexertion from prolonged static or awkward postures, initial encounter; Y93.89 Activity, other specified; Y92.89 Other specified places as the place of occurrence of the external cause; Y99.8 Other external cause status
CPT/HCPCS: 73610

== ENCOUNTER 2024-09-02 12:04 | Inpatient (IN) | payer MEDICAID ==
[~2024-09-02] VITALS: Ht 165.1 cm; Wt 88.1 kg
[~2024-09-02 12:04] MED LIST changes: +IBUP-1456 PO
--- NOTE | 2024-09-02 12:19 | ED.PDOC ---
Musculoskeletal HPI Comments HPI: 54 year old male presents to the ED with chief complaint of left lower extremity pain and swelling. Patient reports that he has been experiencing left foot pain, swelling, and redness for the past 2 weeks. Patient relays that there is now a wound present on the top of his foot and his pain radiates up his leg. Patient states he had been taking Ibuprofen and Gabapentin for pain relief with little relief noted. Patient denies any fever, chills, numbness, weakness, chest pain, or SOB. Initial Vital Signs: Temp : 97.5F BP: 113/53 HR: 91 RR: 20 SpO2: 99% Past Medical History: DM, HTN, HLD Past Surgical History: Denies Social History: Denies smoking or drug use. Occasional ETOH. Allergies: NKDA REVIEW OF SYSTEMS: CONSTITUTIONAL: Denies acute: fever, diaphoresis, chills, generalized weakness. HEAD: Denies acute: headache, photophobia Eyes: Denies acute: Double vision, vision loss, eye pain, eye discharge. EARS: Denies acute: tinnitus, hearing loss, ear discharge, ear pain, THROAT: Denies acute: sore throat, swelling, difficulty swallowing , pain with swal lowing, change in voice. NECK: Denies acute: neck pain, neck swelling, stiff neck. HEART: Denies acute : chest pain, palpitations, LUNGS: Denies acute: SOB, wheezing, cough, hemoptysis ABDOMEN: Denies acute: abdominal pain, Nausea, Vomiting, diarrhea, melena , hematemesis, hematochezia SKIN: Denies acute: lesions, itchiness. EXTREMITIES: Denies acute: calf pain, numbness, tingling, weakness, denies pain in extremity. Denies acute: Low back pain. Neuro: Denies acute: focal neurological deficit, motor or sensory focal neurological deficit, tremors, seizure like activity, confusion, dizziness, change in mental status, loss of bowel or bladder function, cauda equina like symptoms. : Denies acute: dysuria, hematuria, flank pain, increase in urinary frequency. PSYCH: Denies acute: hallucination, suicidal ideation, homicidal ideation. PHYSICAL EXAM: General: no acute distress, awake and alert. Head: normocephalic, atraumatic. Neck: supple, trachea is midline, no swelling. Throat: Normal phonation. Eyes:, no erythema, no purulent discharge, no proptosis, no icterus. Heart: regular rate, regular rhythm, no significant murmur appreciated. Lungs: no apparent respiratory distress, Able to speak in full sentences. No wheezing, no rhonchi, no crackles. No stridors Clear to auscultation bilaterally. Abdomen: non tender to palpation, non distended, soft, no guarding, no rebound, + bowel sounds. Neuro: Awake, Alert, oriented to name, self, situation, follows commands GCS=15. Speech is normal. Skin: no petechia, no purpura, no cyanosis, non-pale, not jaundice. Lower extremities: Evaluation of the area of complaint. Patient is noted to have left foot puffiness redness tenderness to palpation at the dorsum of the foot and in bilateral malleoli ice. There is extended erythema above the ankle and pitting edema of 2/4. Patient is neurovascularly intact in the affected extremity.. Motor and sensory are present. Pulses are palpable. Makes eye contact. moves all four extremities. Face: no apparent facial droop. ED COURSE: Chief Complaint: Lower Extremity Time Seen by MD: 12:13 Primary Care Provider: GERARD Zuluaga Notes: Nurses Notes, Medications, Allergies Allergies: Coded Allergies: No Known Drug Allergy (Verified Allergy, Unknown, 03/22/22) Home Meds Active Scripts Ibuprofen (Ibuprofen) 800 Mg Tab, 1 TAB PO TID, #30 TAB Prov:JAMES BOB 08/26/24 Doxycycline (Monohydrate) (Doxycycline) 100 Mg Cap, 100 MG PO BID for 14 Days, #28 CAP 0 Refills Prov:REHANA DILLARD 08/01/24 Cephalexin Monohydrate (Cephalexin) 500 Mg Cap, 1 CAP PO QID, #32 CAP Prov:JAMES BOB 08/27/23 Clindamycin Hcl (Clindamycin Hcl) 300 Mg Cap, 300 MG PO QID for 14 Days, #42 CAP Prov:DANIELLE SCHULZ MD 04/16/22 Reported Medications Metformin Hydrochloride (Metformin Hcl) 500 Mg Tab, 1 TAB PO BID, #60 TAB 3 Refills 03/23/22 Insulin Glargine (Lantus) 100 Unit/Ml Inj, 100 UNIT SC, INJ 03/23/22 Gabapentin (GABAPENTIN) 250 Mg/5 Ml Cassie, 250 MG PO, ML 03/23/22 Information Source: Patient Mode of Arrival: Wheelchair Was a procedure done? Was a procedure done?: No Differential Diagnosis EXT Differential Diagnosis: Cellulitis, CHF, Deep Vein Thrombosis, Compartment Syndrome, Fracture, Sprain, Dislocation, Laceration, Gout, DJD, Myocardial Infarction, Contusion, Strain, Septic, Neurovascular injury, Arthritis, Bursitis, Other (Ddx include but not limited to cellulitis, abscess, lymphadenitis, lymphangitis, trauma, DVT, venous insufficiency, trauma, r/o s eptic joint., r/o associated osteomylitis, deep tissue infection, neoplasm, necrotizing fascitits, hematoma, gout.) X-Ray, Labs, Meds, VS Vital Signs Date Time Temp Pulse Resp B/P (MAP) Pulse Ox O2 Delivery O2 Flow Rate FiO2 09/02/24 19:25 86 18 96 Room Air* 0 09/02/24 19:00 97.5 86 18 123/63 (83) 96 97.5 09/02/24 16:57 80 13 106/68 (81) 95 09/02/24 16:00 78 09/02/24 15:15 131/70 09/02/24 14:30 82 12 99 Room Air* 0 21 09/02/24 14:30 97.5 82 12 131/70 (90) 99 97.5 09/02/24 13:32 91 20 99 Room Air* 0 09/02/24 12:44 98.8 90 18 117/56 (76) 99 98.8 09/02/24 12:44 90 18 99 Room Air 09/02/24 12:11 97.5 91 20 113/53 (73) 99 97.5 Lab Test 09/02/24 15:11 09/02/24 15:02 09/02/24 14:59 09/02/24 12:40 Range/Units Sodium Level 124 L 122 L 136-145 mmol/L Potassium Level 4.3 4.8 3.5-5.1 mmol/L Chloride Level 98 92 L 98-107 mmol/L Carbon Dioxide Level 19 L 22 20-31 mmol/L Anion Gap 7 8 5-15 Blood Urea Nitrogen 48 H 53 H 9-23 mg/dL Creatinine 1.83 H 2.11 H 0.700-1.30 mg/dL Glomerular Filtration Rate Calc 43 36 >90 mL/min BUN/Creatinine Ratio 26.2 H 25.1 H 10.0-20.0 Serum Glucose 578 *H 664 *H 74-106 mg/dL Lactic Acid Level 1.5 2.3 *H 0.4-2.0 mmol/L Calcium Level 8.1 L 9.1 8.7-10.4 mg/dL POC Glucose 560 *H 530 *H 70-106 mg/dl White Blood Count 22.0 H 4.4-10.8 10^3/uL Red Blood Count 4.50 4.5-5.90 10^6/uL Hemoglobin 13.3 L 13.5-17.5 g/dL Hematocrit 40.3 L 41.0-53.0 % Mean Corpuscular Volume 89.7 80.0-100.0 fL Mean Corpuscular Hemoglobin 29.6 28.0-32.0 pg Mean Corpuscular Hemoglobin Concent 33.0 32.0-36.0 g/dL Red Cell Distribution Width 14.2 11.8-14.3 % Platelet Count 349 140-450 10^3/uL Mean Platelet Volume 9.3 6.9-10.8 fL Neutrophils (%) (Auto) 90.6 H 37.0-80.0 % Lymphocytes (%) (Auto) 2.8 L 10.0-50.0 % Monocytes (%) (Auto) 6.3 0.0-12.0 % Eosinophils (%) (Auto) 0.0 0.0-7.0 % Basophils (%) (Auto) 0.3 0.0-2.0 % Neutrophils # (Auto) 19.9 H 1.6-8.6 10 ^3/uL Lymphocytes # (Auto) 0.6 0.4-5.4 10 ^3/uL Monocytes # (Auto) 1.4 H 0-1.3 10 ^3/uL Eosinophils # (Auto) 0 0-0.8 10 ^3/uL Basophils # (Auto) 0.1 0-0.2 10 ^3/uL Nucleated Red Blood Cells 0.0 % Erythrocyte Sedimentation Rate 82 H 0-20 mm/hr Total Bilirubin 0.2 0.2-1.0 mg/dL Aspartate Amino Transferase (AST) 101 H 13-40 U/L Alanine Aminotransferase (ALT) 67 H 7-40 U/L Alkaline Phosphatase 167 H 46-116 U/L Troponin I High Sensitivity 8 </=54 ng/L C-Reactive Protein High Sensitivity > 20.00 H <1.0 mg/dL B-Type Natriuretic Peptide 25.89 0-100 pg/mL Total Protein 7.3 5.7-8.2 g/dL Albumin 3.7 3.2-4.8 g/dL Current Medications Medications (Trade) Dose Ordered Sig/Isaiah Route Start Time Stop Time Status Last Admin Clindamycin Phosphate 50 ml @ 50 mls/hr ONCE ONCE IV 09/02/24 12:15 09/02/24 13:14 DC 09/02/24 13:31 Acetaminophen/ Hydrocodone Bitart ([place] 5/325MG Tab) 1 tab ONCE ONCE PO 09/02/24 13:15 09/02/24 13:16 DC 09/02/24 13:09 Sodium Chloride 1,850 ml @ 1,850 mls/hr ONCE ONCE IV 09/02/24 13:30 09/02/24 14:29 DC 09/02/24 13:20 Insulin Human Regular (InsuLIN R) 5 units ONCE ONCE IV 09/02/24 14:00 09/02/24 14:34 DC 09/02/24 15:14 Sodium Chloride 1,000 ml @ 1,000 mls/hr Q1H ONCE IV 09/02/24 14:00 09/02/24 14:59 DC 09/02/24 14:00 Fentanyl Citrate 100 mcg ONCE ONCE IV 09/02/24 15:15 09/02/24 15:16 DC 09/02/24 15:15 Acetaminophen/ Hydrocodone Bitart ([place] 5/325MG Tab) 1 tab ONCE ONCE PO 09/02/24 18:00 09/02/24 18:01 DC 09/02/24 18:03 [place] [address] Ph: [phone] DIAGNOSTIC IMAGING Diagnostic Imaging Report : [id number] Signed PATIENT: DENISSE CLEARY ACCT: [id number] UNIT: [id number] : 1970 LOC: ER ROOM / BED: / AGE / SEX: 54 / M ADM STATUS: REG ER SERVICE 1214 ORDERING PHYSICIAN: LINETTE WINSLOW DO PROCEDURE(s): LLDVT - LT Lower DVT REASON: pain swelling ORDER NUMBER(s): [id number], ACCESSION NUMBER(s): [id number] Left lower extremity venous duplex Clinical History: pain swelling Comparison: LELMR on DOS: 04/04/22 Technique: Duplex Doppler evaluation of the deep venous system of the left lower extremity from the common femoral vein to the popliteal vein including color Doppler and spectral/pulsed waveform analysis was performed. Findings: The common femoral vein demonstrates appropriate compressibility and waveform variability. There is compressibility/patency of the great saphenous vein at the proximal thigh. The femoral vein demonstrates appropriate compressibility and waveform variability. The deep femoral vein demonstrates appropriate compressibility and waveform variability. The popliteal vein demonstrates appropriate compressibility and waveform variability. There is normal compressibility at the tibioperoneal trunk. Impression: No left femoropopliteal venous thrombosis. ATED BY: VIDYA RUIZ MD DICTATED DATE/TIME: 09/02/24 1239 SIGNED BY: VIDYA RUIZ MD SIGNED DATE/TIME: 09/02/24 1239 CC: [place] [address] Ph: [phone] DIAGNOSTIC IMAGING Diagnostic Imaging Report : [id number] Signed PATIENT: DENISSE CLEARY ACCT: [id number] UNIT: [id number] : 1970 LOC: ER ROOM / BED: / AGE / SEX: 54 / M ADM STATUS: REG ER SERVICE 1627 ORDERING PHYSICIAN: LINETTE WINSLOW DO PROCEDURE(s): LLEX - LEFT LOWER EXTREMITY W/O CON REASON: FOOT INFECTION ORDER NUMBER(s): [id number], ACCESSION NUMBER(s): [id number] INDICATION: FOOT INFECTION COMPARISON: None TECHNIQUE: CT of the left was performed without contrast. Volume transverse images were obtained and reconstructed in multiple planes using bone and soft tissue algorithms. Radiation Dose Information: CT Dose: CTDI volume is 25.08 mGy. Dose-length product is 1048.18 mGy*cm FINDINGS: There is soft tissue swelling adjacent to the lateral malleolus. There are tiny collections of air seen in the soft tissues adjacent to the distal fibula. The soft tissue swelling is quite extensive immediately distal to the fibular tip, axial image 94, series 3. No destructive changes seen of the osseous structures. Alignment of the ankle joint is anatomic. No acute fracture. No foreign bodies. Severe vascular calcification. IMPRESSION: 1. Small collections of air associated with marked soft tissue swelling laterally consistent with an infectious etiology. Findings may represent a phlegmon. Study performed without IV contrast and discrete underlying abscess can not be excluded. No osteomyelitis seen at this time. ATED BY: MISBAH DUVALL MD DICTATED DATE/TIME: 09/02/241731 SIGNED BY: MISBAH DUVALL MD SIGNED DATE/TIME: 09/02/241731 CC: Time of 1ST Reevaluation: 13:13 Reevaluation 1ST: Unchanged Patient Education/Counseling: Diagnosis, Treatment Family Education/Counseling: No Family Present Comments Patient presented with the above HPI.---sepsis and the wound infection---workup was initiated. patient was found with the above mentioned diagnosis. the following medications were ordered: please refer to order lists of meds and tests obtained by myself Dr. Winslow. Patient ED course and VS have been stabilized. Patient has been reassessed in the ED and remained in a stable condition. Pertinent incidental findings were discussed with the patient and/or family. Patient/family voices understanding and is agreeable with plan. Patient has been observed in the ED adequate length of time to insure improvement/stability. Escalation of care considered: Consideration of escalation to observation or admission Sepsis protocol was initiated. Patient was ADMITTED to the medicine team for further evaluation and treatment of their presentation. Medicine team initiated vancomycin and Zosyn in addition. All the reports of any imaging studies that were ordered by myself were reviewed by myself. Departure 1 Departure Time of Disposition: 12:30 Impression: Primary Impression: Hyperglycemia Additional Impressions: Sepsis Acute renal insufficiency Disposition: ADMITTED INPATIENT Admit to: Tele Condition: Guarded Discharged With: Self Critical Care Note Critical Care Time?: Yes (45 min-critical care time only) I personally scribed for LINETTE WINSLOW DO ([email or web address]) on 09/02/24 at 12:19. Electronically submitted by Aaron Monroy ([email or web address]). I personally scribed for LINETTE WINSLOW DO ([email or web address]) on 09/02/24 at 13:17. Electronically submitted by Aaron Monroy ([email or web address]). I personally scribed for LINETTE WINSLOW DO ([email or web address]) on 09/02/24 at 13:24. Electronically submitted by Aaorn Monroy ([email or web address]). I personally scribed for LINETTE WINSLOW DO ([email or web address]) on 09/02/24 at 13:58. Electronically submitted by Aaron Monroy ([email or web address]). LINETTE WINSLOW DO Sep 02, 2024 12:19
--- NOTE | 2024-09-02 12:42 | DVH ---
Left lower extremity venous duplex Clinical History: pain swelling Comparison: BILL on DOS: 04/04/22 Technique: Duplex Doppler evaluation of the deep venous system of the left lower extremity from the common femor al vein to the popliteal vein including color Doppler and spectral/pulsed waveform analysis was perfo rmed. Findings: The common femoral vein demonstrates appropriate compressibility and waveform variability. There is compressibility/patency of the great saphenous vein at the proximal thigh. The femoral vein demonstrates appropriate compressibility and waveform variability. The deep femoral vein demonstrates appropriate compressibility and waveform variability. The popliteal vein demonstrates appropriate compressibility and waveform variability. There is normal compressibility at the tibioperoneal trunk. Impression: No left femoropopliteal venous thrombosis.
[2024-09-02 13:09] LABS: Basophils # (auto) 0.1 10 ^3/uL (0-0.2); Basophils % (auto) 0.3 % (0.0-2.0); Eosinophils # (auto) 0 10 ^3/uL (0-0.8); Hematocrit 40.3 % (41.0-53.0); Hemoglobin 13.3 g/dL (13.5-17.5); Lymphocytes # (auto) 0.6 10 ^3/uL (0.4-5.4); Lymphocytes % (auto) 2.8 % (10.0-50.0); Mean Corpuscular Hemoglobin 29.6 pg (28.0-32.0); Mean Corpuscular Volume 89.7 fL (80.0-100.0); Monocytes # (auto) 1.4 10 ^3/uL (0-1.3); Monocytes % (auto) 6.3 % (0.0-12.0); Neutrophils # (auto) 19.9 10 ^3/uL (1.6-8.6); Neutrophils % (auto) 90.6 % (37.0-80.0); Platelet Count (auto) 349 10^3/uL (140-450); Red Cell Distribution Width 14.2 % (11.8-14.3)
[2024-09-02] MEDS: HYDROcodone-ACET 5/325MG TAB PO ONE ×2 (13:09→18:03)
[2024-09-02 13:18] LABS: Albumin 3.7 g/dL (3.2-4.8); Anion Gap 8 (5-15); BUN/Creatinine Ratio 25.1 (10.0-20.0); Calcium 9.1 mg/dL (8.7-10.4); Carbon Dioxide 22 mmol/L (20-31); Potassium 4.8 mmol/L (3.5-5.1); Total Protein 7.3 g/dL (5.7-8.2)
[2024-09-02 13:20] LABS: Alanine Aminotransferase 67 U/L (7-40); Alkaline Phosphatase 167 U/L (46-116); Aspartate Aminotransferase 101 U/L (13-40); Bilirubin, Total 0.2 mg/dL (0.2-1.0); Blood Urea Nitrogen 53 mg/dL (9-23); Chloride 92 mmol/L (98-107); Sodium 122 mmol/L (136-145)
[2024-09-02] MEDS: SODIUM CHLORIDE 0.9% 1,850 ML IV ONE (13:20)
[2024-09-02 13:22] LABS: Glucose 664 mg/dL (74-106); Lactic Acid w/Reflex 2.3 mmol/L (0.4-2.0)
[2024-09-02 13:30] LABS: CRP High Sensitivity > 20.00 mg/dL (<1.0)
[2024-09-02] MEDS: CLINDAMYCIN 900MG IV 50 ML IV ONE (13:31)
[2024-09-02 13:32] VITALS: PULSE 91; RESP 20; O2SAT 99
[2024-09-02 13:38] LABS: Erythrocyte Sedimentation Rate 82 mm/hr (0-20)
[2024-09-02] MEDS: SODIUM CHLORIDE 0.9% 1,000 ML IV ONE (14:00)
[2024-09-02 14:30] VITALS: PULSE 82; RESP 12; O2SAT 99
[2024-09-02] MEDS: InsuLIN REG 1unit/0.01ml Soln (100units/ml) IV ONE (15:14)
[2024-09-02] MEDS: fentaNYL CITRATE 100 MCG/2 ML VL IV ONE (15:15)
[2024-09-02 15:49] LABS: Anion Gap 7 (5-15); Potassium 4.3 mmol/L (3.5-5.1)
[2024-09-02 15:55] LABS: BUN/Creatinine Ratio 26.2 (10.0-20.0)
[2024-09-02 16:04] LABS: Blood Urea Nitrogen 48 mg/dL (9-23); Carbon Dioxide 19 mmol/L (20-31); Chloride 98 mmol/L (98-107); Sodium 124 mmol/L (136-145)
[2024-09-02 16:05] LABS: Calcium 8.1 mg/dL (8.7-10.4)
[2024-09-02 16:07] LABS: Glucose 578 mg/dL (74-106)
--- NOTE | 2024-09-02 17:35 | DVH ---
INDICATION: FOOT INFECTION COMPARISON: None TECHNIQUE: CT of the left was performed without contrast. Volume transverse images were obtained and reconstructed in multiple planes using bone and soft tissue algorithms. Radiation Dose Information: CT Dose: CTDI volume is 25.08 mGy. Dose-length product is 1048.18 mGy*cm FINDINGS: There is soft tissue swelling adjacent to the lateral malleolus. There are tiny collections of air se en in the soft tissues adjacent to the distal fibula. The soft tissue swelling is quite extensive imm ediately distal to the fibular tip, axial image 94, series 3. No destructive changes seen of the osse ous structures. Alignment of the ankle joint is anatomic. No acute fracture. No foreign bodies. Sever e vascular calcification. IMPRESSION: 1. Small collections of air associated with marked soft tissue swelling laterally consistent with an infectious etiology. Findings may represent a phlegmon. Study performed without IV contrast and discr ete underlying abscess can not be excluded. No osteomyelitis seen at this time.
[2024-09-02 19:25] VITALS: PULSE 86; RESP 18; O2SAT 96
--- NOTE | 2024-09-02 19:56 | DVHHP2 ---
History of Present Illness Reason for Visit: Sepsis, unspecified organisms History of Present Illness Patient is a 54-year-old male with past medical history of diabetes mellitus, hypertension, and hyperlipidemia who presented to [facility] ED with complaint of left lower extremity pain and swelling. Patient reports he has been experiencing left foot pain, redness, swelling, open wound on top of his foot, for the past 2 weeks, getting worse today that prompted this visit. Patient was seen and evaluated in the ED, laboratory data shows WBC 22.0 platelets 349, sodium 124, potassium 4.3, BUN 48, creatinine 1.83, GFR 43, glucose 578, calcium 8.1, BNP 25.89, C-reactive protein > 20.00, AST 101, ALT 67, lactic acid 2.3 trending down to 1.5, troponin 8. Left foot CT revealing small collection of associated with marked soft tissue swelling laterally consistent with an infectious etiology; findings may represent a phlegmon, no osteomyelitis seen at this time. Patient was started on IV antibiotic regimen vancomycin, please see medication orders section in the computer. On my assessment, patient denied chest pain, no headache, no dizziness, no diaphoresis, no shortness of breaths, no nausea, no vomiting, no fever, no chills. Patient was admitted for further evaluation and medical management. Past Medical History DM, HTN, HLD Past Surgical History Denies all surgeries Family History Reviewed, noncontributory to the management of this case. Past Social History The patient lives at home, denies smoking, alcohol or illicit drugs abuse. Review of Systems Constitutional: Yes: Weakness; No: Fever, Chills, Sweats, Malaise, Other Eyes: No: Pain, Vision change, Conjunctivae inflammation, Eyelid inflammation, Other, Redness ENT: No: Ear pain, Ear discharge, Nose pain, Nose discharge, Nose congestion, Mouth pain, Mouth swelling, Throat pain, Throat swelling, Other Respiratory: No: Cough, Dry, Shortness of breath, SOB with excertion, Wheezing, Hemoptysis, Pleuritic Pain, Sputum, Wheezing, Other Cardiovascular: No: Chest Pain, Palpitations, Orthopnea, Paroxysmal Noc. Dyspnea, Edema, Lt Headedness, Other Gastrointestinal: No: Nausea, Vomiting, Abdominal Pain, Diarrhea, Constipation, Melena, Hematochezia, Other Genitourinary: No Dysuria, No Frequency, No Incontinence, No Hematuria, No Retention, No Other Musculoskeletal: other (Left foot pain); No: neck pain, shoulder pain, arm pain, back pain, hand pain, leg pain, foot pain Skin: Other (Left foot redness/open wound.); No: Rash, Lesions, Jaundice, Bruising Neurological: No: Weakness, Numbness, Incoordination, Change in speech, Confusion, Seizures, Other Allergies: Coded Allergies: No Known Drug Allergy (Verified Allergy, Unknown, 03/22/22) Exam Vital Signs Vital Signs Date Time Temp Pulse Resp B/P (MAP) Pulse Ox O2 Delivery O2 Flow Rate FiO2 09/02/24 16:57 80 13 106/68 (81) 95 09/02/24 14:30 Room Air* 0 21 09/02/24 14:30 97.5 97.5 General Appearance: Alert, Oriented X3, Cooperative, No acute distress HEENT: Atraumatic, PERRLA, EOMI, Mucous membr. moist/pink Respiratory: Clear to auscultation, Normal air movement Cardiovascular: Regular rate, Normal S1, Normal S2, No murmurs Abdominal: Normal bowel sounds, Soft, No tenderness, No hepatospenomegaly, No masses Extremities: No clubbing, No cyanosis, Normal pulses, Other (Left foot tenderness/swelling) Skin: No rashes, No breakdown, No significant lesion Neuro: Normal speech, Normal tone, Sensation intact, Cranial nerves 3-12 NL, Reflexes 2+, Other (Generalized weakness) Psych/Mental Status: Mental status NL, Mood NL Labs/Xrays Labs Test 09/02/24 15:11 09/02/24 15:02 09/02/24 12:40 Range/Units Sodium Level 124 L 136-145 mmol/L Potassium Level 4.3 3.5-5.1 mmol/L Chloride Level 98 98-107 mmol/L Carbon Dioxide Level 19 L 20-31 mmol/L Anion Gap 7 5-15 Blood Urea Nitrogen 48 H 9-23 mg/dL Creatinine 1.83 H 0.700-1.30 mg/dL Glomerular Filtration Rate Calc 43 >90 mL/min BUN/Creatinine Ratio 26.2 H 10.0-20.0 Serum Glucose 578 *H 74-106 mg/dL Lactic Acid Level 1.5 0.4-2.0 mmol/L Calcium Level 8.1 L 8.7-10.4 mg/dL POC Glucose 560 *H 70-106 mg/dl White Blood Count 22.0 H 4.4-10.8 10^3/uL Red Blood Count 4.50 4.5-5.90 10^6/uL Hemoglobin 13.3 L 13.5-17.5 g/dL Hematocrit 40.3 L 41.0-53.0 % Mean Corpuscular Volume 89.7 80.0-100.0 fL Mean Corpuscular Hemoglobin 29.6 28.0-32.0 pg Mean Corpuscular Hemoglobin Concent 33.0 32.0-36.0 g/dL Red Cell Distribution Width 14.2 11.8-14.3 % Platelet Count 349 140-450 10^3/uL Mean Platelet Volume 9.3 6.9-10.8 fL Neutrophils (%) (Auto) 90.6 H 37.0-80.0 % Lymphocytes (%) (Auto) 2.8 L 10.0-50.0 % Monocytes (%) (Auto) 6.3 0.0-12.0 % Eosinophils (%) (Auto) 0.0 0.0-7.0 % Basophils (%) (Auto) 0.3 0.0-2.0 % Neutrophils # (Auto) 19.9 H 1.6-8.6 10 ^3/uL Lymphocytes # (Auto) 0.6 0.4-5.4 10 ^3/uL Monocytes # (Auto) 1.4 H 0-1.3 10 ^3/uL Eosinophils # (Auto) 0 0-0.8 10 ^3/uL Basophils # (Auto) 0.1 0-0.2 10 ^3/uL Nucleated Red Blood Cells 0.0 % Erythrocyte Sedimentation Rate 82 H 0-20 mm/hr Total Bilirubin 0.2 0.2-1.0 mg/dL Aspartate Amino Transferase (AST) 101 H 13-40 U/L Alanine Aminotransferase (ALT) 67 H 7-40 U/L Alkaline Phosphatase 167 H 46-116 U/L Troponin I High Sensitivity 8 </=54 ng/L C-Reactive Protein High Sensitivity > 20.00 H <1.0 mg/dL B-Type Natriuretic Peptide 25.89 0-100 pg/mL Total Protein 7.3 5.7-8.2 g/dL Albumin 3.7 3.2-4.8 g/dL PATIENT: DENISSE CLEARY ACCT: [id number] UNIT: [id number] : 1970 LOC: ER ROOM / BED: / AGE / SEX: 54 / M ADM STATUS: REG ER SERVICE 1214 ORDERING PHYSICIAN: LINETTE WINSLOW DO PROCEDURE(s): LLDVT - LT Lower DVT REASON: pain swelling ORDER NUMBER(s): [id number], ACCESSION NUMBER(s): [id number] Left lower extremity venous duplex Clinical History: pain swelling Comparison: LELMR on DOS: 04/04/22 Technique: Duplex Doppler evaluation of the deep venous system of the left lower extremity from the common femoral vein to the popliteal vein including color Doppler and spectral/pulsed waveform analysis was performed. Findings: The common femoral vein demonstrates appropriate compressibility and waveform variability. There is compressibility/patency of the great saphenous vein at the proximal thigh. The femoral vein demonstrates appropriate compressibility and waveform variab ility. The deep femoral vein demonstrates appropriate compressibility and waveform variability. The popliteal vein demonstrates appropriate compressibility and waveform variability. There is normal compressibility at the tibioperoneal trunk. Impression: No left femoropopliteal venous thrombosis. ORDERING PHYSICIAN: LINETTE WINSLOW DO PROCEDURE(s): LLEX - LEFT LOWER EXTREMITY W/O CON REASON: FOOT INFECTION ORDER NUMBER(s): [id number], ACCESSION NUMBER(s): [id number] INDICATION: FOOT INFECTION COMPARISON: None TECHNIQUE: CT of the left was performed without contrast. Volume transverse im ages were obtained and reconstructed in multiple planes using bone and soft tissue algorithms. Radiation Dose Information: CT Dose: CTDI volume is 25.08 mGy. Dose-length product is 1048.18 mGy*cm FINDINGS: There is soft tissue swelling adjacent to the lateral malleolus. There are tiny collections of air seen in the soft tissues adjacent to the distal fibula. The soft tissue swelling is quite extensive immediately distal to the fibular tip, axial image 94, series 3. No destructive changes seen of the osseous structures. Alignment of the ankle joint is anatomic. No acute fracture. No foreign bodies. Severe vascular calcification. IMPRESSION: 1. Small collections of air associated with marked soft tissue swelling laterally consistent with an infectious etiology. Findings may represent a phlegmon. Study performed without IV contrast and discrete underlying abscess can not be excluded. No osteomyelitis seen at this time. Assessment/Plan Assessment/Plan Diabetic foot ulcer of the left Sepsis, unspecified organisms Acute renal insufficiency Generalized weakness Diabetes mellitus with hyperglycemia Plan 1. Admit to telemetry unit 2. Breathing treatment 3. Pain control management 4. IV antibiotic management 5. Management of fluids and electrolytes 6. Consultation for hospitalized 7. Diagnostic test CT of the left foot 8. DVT prophylaxis-on aspirin 9. Repeat labs CBC, CMP in a.m. 10. Home medication reviewed and reconciled 11. Continue with current medical management 12. Treatment plan discussed with patient and RN. Patient verbalized understanding. Plan discussed with: Patient, Other (RN) Problem List: (1) Diabetic ulcer of left foot (2) Sepsis, unspecified organism (3) Acute renal insufficiency (4) Generalized weakness (5) Diabetes mellitus with hyperglycemia Date of Service: Sep 02, 2024 Billing Provider: LANNY ANDERSON DNP Common Visit Codes: [id number] INP/OBS CARE (HIGH) LANNY ANDERSON DNP Sep 02, 2024 19:56
[2024-09-02] MEDS ORDERED: DEXTROSE (50%) 50ML SYRG IV PRN (20:00)
[2024-09-02] MEDS ORDERED: ONDANSETRON HCL 4 MG/2 ML VIAL IV PRN (20:00)
[2024-09-02] MEDS ORDERED: NITROGLYCERIN 0.4 MG SL TAB SL PRN (20:00)
[2024-09-02] MEDS ORDERED: DOCUSATE SOD 100 MG CAP PO PRN (20:00)
[2024-09-02] MEDS ORDERED: VANCOMYCIN PER PHARMACY 0 MG IV SCH (20:00)
[2024-09-02] MEDS ORDERED: IBUPROFEN 600 MG TAB PO PRN (20:00)
[2024-09-02] MEDS ORDERED: MORPHINE SULFATE INJ 2 MG/ml SYRG IV PRN (20:00)
[2024-09-02] MEDS: ACCU-CHEK COMFORT CURVE STRIP VI SCH (20:21)
[2024-09-02] MEDS: InsuLIN REG 1unit/0.01ml Soln (100units/ml) SC SCH (20:26)
[2024-09-02] MEDS: PIPERACILLIN-TAZOB 3.375GM 100 ML IV ONE (20:27)
[2024-09-02] MEDS: SODIUM CHLORIDE 0.9% 1,000 ML IV SCH (20:27)
[2024-09-02] MEDS: VANCOMYCIN 1.75GM/350ML 350 ML IV ONE (22:01)
[2024-09-02] MEDS: ATORVASTATIN 20 MG TAB PO SCH (22:05)
[2024-09-02 22:57] VITALS: BP 112/70; PULSE 93; RESP 18; TEMP 98.2; O2SAT 96
[2024-09-02] MEDS ORDERED: ATOR20TA PO (23:52)
[2024-09-03] VITALS (9 sets, daily range): BP systolic 108–159; BP diastolic 57–74; PULSE 88–109; RESP 17–21; TEMP 97.8–99.9; O2SAT 94–96
[2024-09-03] MEDS: PIPERACILLIN-TAZOB 3.375GM 100 ML IV SCH (05:00)
[2024-09-03 06:49] LABS: Basophils # (auto) 0.1 10 ^3/uL (0-0.2); Basophils % (auto) 0.5 % (0.0-2.0); Eosinophils # (auto) 0.1 10 ^3/uL (0-0.8); Eosinophils % (auto) 0.3 % (0.0-7.0); Hematocrit 37.3 % (41.0-53.0); Hemoglobin 12.8 g/dL (13.5-17.5); Lymphocytes # (auto) 0.5 10 ^3/uL (0.4-5.4); Lymphocytes % (auto) 2.2 % (10.0-50.0); Mean Corpuscular Hemoglobin 29.9 pg (28.0-32.0); Mean Corpuscular Hgb Conc. 34.2 g/dL (32.0-36.0); Mean Corpuscular Volume 87.3 fL (80.0-100.0); Monocytes # (auto) 1.2 10 ^3/uL (0-1.3); Monocytes % (auto) 5.2 % (0.0-12.0); Neutrophils % (auto) 91.8 % (37.0-80.0); Platelet Count (auto) 349 10^3/uL (140-450); Red Blood Cells 4.27 10^6/uL (4.5-5.90); Red Cell Distribution Width 14.4 % (11.8-14.3)
[2024-09-03 07:05] LABS: Albumin 3.5 g/dL (3.2-4.8); Anion Gap 9 (5-15); BUN/Creatinine Ratio 30.4 (10.0-20.0); Chloride 102 mmol/L (98-107); Total Protein 6.9 g/dL (5.7-8.2)
[2024-09-03 07:06] LABS: Bilirubin, Total 0.3 mg/dL (0.2-1.0)
[2024-09-03 07:09] LABS: Alanine Aminotransferase 55 U/L (7-40); Alkaline Phosphatase 187 U/L (46-116); Aspartate Aminotransferase 51 U/L (13-40); Blood Urea Nitrogen 49 mg/dL (9-23); Calcium 8.7 mg/dL (8.7-10.4); Carbon Dioxide 20 mmol/L (20-31); Glucose 112 mg/dL (74-106); Sodium 131 mmol/L (136-145)
[2024-09-03] MEDS: HYDROcodone-ACET 5/325MG TAB PO PRN (07:19)
[2024-09-03] MEDS: FAMOTIDINE (10MG/ML) 2ML VL IV SCH (08:56)
[2024-09-03] MEDS: ASPirin 81 mg TAB PO SCH (08:56)
[2024-09-03] MEDS: VANCOMYCIN 1.25GM/250ML 250 ML IV ONE (12:34)
--- NOTE | 2024-09-03 13:48 | DVHPN2 ---
Subjective The patient is seen and examined bedside. The patient complained of severe leg pain. Reviewed: Care Plan, H&P, Labs, Medications, Previous Orders, Radiology Changes from previous H/P or p: No Changes Eyes: No Pain, No Vision change, No Conjunctivae inflammation, No Eyelid inflammation, No Other, No Redness ENT: No Ear pain, No Ear discharge, No Nose pain, No Nose discharge, No Nose congestion, No Mouth pain, No Mouth swelling, No Throat pain, No Throat swelling, No Other Cardiovascular: No Chest Pain, No Palpitations, No Orthopnea, No Paroxysmal Noc. Dyspnea, No Edema, No Lt Headedness, No Other Respiratory: No Cough, No Dry, No Shortness of breath, No SOB with excertion, No Wheezing, No Hemoptysis, No Pleuritic Pain, No Sputum, No Other Gastrointestinal: No Nausea, No Vomiting, No Abdominal Pain, No Diarrhea, No Constipation, No Melena, No Hematochezia, No Other Genitourinary: No Dysuria, No Frequency, No Incontinence, No Hematuria, No Retention, No Other Musculoskeletal: other (Left foot pain); No neck pain, No shoulder pain, No arm pain, No back pain, No hand pain, No leg pain, No foot pain Skin: No Rash, No Lesions, No Jaundice, No Bruising; Other (Left foot redness/open wound.) Objective Vitals Vital Signs Date Time Temp Pulse Resp B/P (MAP) Pulse Ox O2 Delivery O2 Flow Rate FiO2 09/03/24 13:00 97.8 89 18 142/69 (93) 96 97.8 09/02/24 23:24 Room Air* 0 21 Intake/Output Intake and Output 09/03/24 07:00 Intake Total 3590 ml Output Total 300 ml Balance 3290 ml Intake Oral 350 ml IV Total 3240 ml Output Urine Total 300 ml General Appearance: Alert, Oriented X3, Cooperative, No acute distress HEENT: Atraumatic, PERRLA, EOMI, Mucous membr. moist/pink Neck: Supple Lungs: Clear to auscultation, Normal air movement Cardiovascular: Regular rate, Normal S1, Normal S2, No murmurs, Gallops, Rubs Abdomen: Normal bowel sounds, Soft, No tenderness Extremities: Other (Severe tenderness on palpate of left lower extremity) Neuro: Cranial nerves 3-12 NL Psych/Mental Status: Mental status NL Medications Current Medications Medications Dose Ordered Sig/Isaiah Route Start Time Stop Time Status Last Admin Dose Admin Piperacillin Sod/ Tazobactam Sod 100 ml @ 25 mls/hr Q8HR IV 09/03/24 06:00 09/03/24 05:00 25 MLS/HR Vancomycin HCl 0 ml @ 0 mls/hr UD IV 09/02/24 20:00 Atorvastatin Calcium 20 mg HS PO 09/02/24 22:00 09/02/24 22:05 20 MG Hydralazine HCl 10 mg Q6HP PRN IV 09/02/24 20:00 Famotidine 20 mg DAILY IV 09/03/24 10:00 09/03/24 08:56 20 MG Diagnostic Test (Pha) 1 strip IQ4HR 09/02/24 20:00 09/03/24 12:09 1 STRIP Insulin Human Regular IQ4HR SC 09/02/24 20:00 09/03/24 12:17 8 UNITS Dextrose 50 ml UD PRN IV 09/02/24 20:00 Sodium Chloride 1,000 ml @ 120 mls/hr Q8H20M IV 09/02/24 20:00 09/03/24 12:19 120 MLS/HR Acetaminophen/ Hydrocodone Bitart 1 tab Q4HP PRN PO 09/02/24 20:00 09/03/24 07:19 1 TAB Ondansetron HCl 4 mg Q4HP PRN IV 09/02/24 20:00 Docusate Sodium 100 mg BIDPRN PRN PO 09/02/24 20:00 Morphine Sulfate 2 mg Q4HPRN PRN IV 09/02/24 20:00 Nitroglycerin 0.4 mg Q5MINP PRN SL 09/02/24 20:00 Morphine Sulfate 2 mg Q30M PRN IV 09/02/24 20:00 Ibuprofen 600 mg Q6HP PRN PO 09/02/24 20:00 Hold Aspirin 81 mg DAILY PO 09/03/24 10:00 09/03/24 08:56 81 MG Laboratory Results Laboratory Tests 09/03/24 05:57 Chemistry Test 09/02/24 15:11 09/03/24 05:57 Calcium Level 8.1 mg/dL (8.7-10.4) L 8.7 mg/dL (8.7-10.4) Albumin 3.5 g/dL (3.2-4.8) Total Protein 6.9 g/dL (5.7-8.2) LFT Test 09/03/24 05:57 Alanine Aminotransferase (ALT) 55 U/L (7-40) H Alkaline Phosphatase 187 U/L (46-116) H Aspartate Amino Transferase (AST) 51 U/L (13-40) H Total Bilirubin 0.3 mg/dL (0.2-1.0) HgA1c, TSH Test 09/03/24 05:57 Hemoglobin A1c 10.0 % A1C (<5.7) H Microbiology Microbiology Date/Time Source Procedure Growth Status 09/02/24 12:40 Blood Blood Culture - Preliminary NO GROWTH AFTER 24 HOURS OF INCUBATION. Resulted Labs and/or images reviewed: Labs reviewed by me Assessment/Plan Assessment/Plan Diabetic foot ulcer of the left Sepsis, unspecified organisms Acute renal insufficiency Generalized weakness Diabetes mellitus with hyperglycemia Continuing current management. The patient still remained with leukocytosis. Severe pain in the left foot and also air in tissue in the CT scan of the foot so I am going to repeat the CT scan of the left foot with oral and IV contrast. I will consulted paste plant supervisor, general surgeon for possible necrotic fasciitis. Continuing sliding scale insulin. Discuss with in the patient. Continuing with pain medication morphine IV and Douds. We will monitor kidney function This medical document was created using an electronic medical record system with M[employer] direct computerized dictation system. Although this document has been carefully reviewed, there may still be some phonetic and typographical errors. These areas are purely typographical due to imperfections of the software programs, and do not reflect any compromise in the patient's medical care. Plan discussed with: Patient, Spouse Date of Service: Sep 03, 2024 Billing Provider: JERALD MOSCOSO MD Common Visit Codes: [id number] INP/OBS CARE(HIGH) JERALD MOSCOSO MD Sep 03, 2024 13:48
[2024-09-03] MEDS: MORPHINE SULFATE INJ 2 MG/ml SYRG IV PRN (15:41)
[2024-09-03] MEDS: hydrALAZINE HCL 20 MG/ML VL IV PRN (17:26)
[2024-09-04] VITALS (7 sets, daily range): BP systolic 110–153; BP diastolic 7–84; PULSE 88–103; RESP 17–19; TEMP 97.6–99.3; O2SAT 94–99
[2024-09-04 06:02] LABS: Basophils # (auto) 0.1 10 ^3/uL (0-0.2); Basophils % (auto) 0.5 % (0.0-2.0); Eosinophils # (auto) 0.2 10 ^3/uL (0-0.8); Hematocrit 37.3 % (41.0-53.0); Hemoglobin 12.3 g/dL (13.5-17.5); Lymphocytes # (auto) 0.6 10 ^3/uL (0.4-5.4); Lymphocytes % (auto) 2.6 % (10.0-50.0); Mean Corpuscular Hemoglobin 28.9 pg (28.0-32.0); Mean Corpuscular Hgb Conc. 32.9 g/dL (32.0-36.0); Mean Corpuscular Volume 87.9 fL (80.0-100.0); Monocytes # (auto) 1.7 10 ^3/uL (0-1.3); Neutrophils # (auto) 21.4 10 ^3/uL (1.6-8.6); Neutrophils % (auto) 88.9 % (37.0-80.0); Platelet Count (auto) 365 10^3/uL (140-450); Red Blood Cells 4.25 10^6/uL (4.5-5.90); Red Cell Distribution Width 14.5 % (11.8-14.3)
[2024-09-04 06:18] LABS: Anion Gap 12 (5-15); Chloride 104 mmol/L (98-107); Potassium 3.6 mmol/L (3.5-5.1)
[2024-09-04 06:29] LABS: Blood Urea Nitrogen 31 mg/dL (9-23); Calcium 8.4 mg/dL (8.7-10.4); Carbon Dioxide 19 mmol/L (20-31); Glucose 117 mg/dL (74-106); Sodium 135 mmol/L (136-145)
[2024-09-04] MEDS: MULTIPLE VITAMINS W/ MINERALS TAB PO SCH (09:18)
[2024-09-04] MEDS: ASCORBIC ACID 500 MG TAB PO SCH (09:19)
[2024-09-04] MEDS: Pro-Stat SF 30ml Vanilla PO SCH (10:00)
[2024-09-04] MEDS: Juven Orange Powder PACKET 27.5gm PO SCH (12:27)
[2024-09-04] MEDS: VANCOMYCIN 1GM/250ML KIT 250 ML IV SCH (14:15)
--- NOTE | 2024-09-04 16:02 | DVH ---
Left Lower Extremity Arterial Duplex Clinical History: r/o necrotizing fascitis Comparison: None Technique: Duplex Doppler evaluation including color Doppler and spectral/pulsed waveform analysis of the lower extremity arteries was performed. Findings: LEFT: Peak systolic velocities are as follows: Anterior tibial 155 cm/s Dorsalis pedis 159 cm/s All other velocities are below 150 centimeter/second. The waveforms are monophasic in the calf.. IMPRESSION: 20-49% stenosis of the left anterior tibial artery and dorsalis pedis based on peak systolic velocity criteria. Monophasic arterial waveforms are present in the left calf suggestive of underlying peripheral arteri al disease. REFERENCE VALUES, [facility] ([facility]) vascular Imaging Lab Criteria: Peak systolic velocity ranges (in cm/sec) are as follows: <150 cm/s - <20 % stenosis 150-200 cm/s - 20-49% stenosis 200-300 cm/s - 50-75% stenosis >300 cm/s -> 75% stenosis
--- NOTE | 2024-09-04 16:38 | DVHINCON2 ---
Date of service: Sep 04, 2024 Family History: Patient reports no known family medical history. Allergies: Coded Allergies: No Known Drug Allergy (Verified Allergy, Unknown, 03/22/22) Home Meds Active Scripts Ibuprofen (Ibuprofen) 800 Mg Tab, 1 TAB PO TID, #30 TAB Prov:JAMES BOB 08/26/24 Doxycycline (Monohydrate) (Doxycycline) 100 Mg Cap, 100 MG PO BID for 14 Days, #28 CAP 0 Refills Prov:REHANA DILLARD 08/01/24 Reported Medications Atorvastatin Calcium (Lipitor) 20 Mg Tab, 1 TAB PO DAILY, #90 TAB 1 Refill 09/02/24 Insulin Glargine (Lantus) 100 Unit/Ml Inj, 100 UNIT SC, INJ 03/23/22 Gabapentin (GABAPENTIN) 250 Mg/5 Ml Cassie, 250 MG PO, ML 03/23/22 Current Medications Current Medications Medications (Trade) Dose Ordered Sig/Isaiah Route PRN Reason Start Time Stop Time Status Last Admin Ascorbic Acid (Vitamin C Tablet) 500 mg BID PO 09/04/24 10:00 09/04/24 09:19 Multivitamins/ Minerals (Mvi W/ Minerals Tablet) 1 tab DAILY PO 09/04/24 10:00 09/04/24 09:18 Enteral Nutritional Formula (Glucerna Carbsteady SHAKE) 240 ml DAILY@BREAKFAST PO 09/05/24 08:00 Enteral Nutritional Formula (Valdo [place] Powder PACKET) 27.5 gm BID PO 09/04/24 10:00 09/04/24 12:27 Amino Acid Protein (Pro-Stat Sugar Free) 30 ml DAILY PO 09/04/24 10:00 09/04/24 10:00 Vancomycin HCl 250 ml @ 250 mls/hr Q12H IV 09/04/24 14:15 Vital Signs Vital Signs Date Time Temp Pulse Resp B/P (MAP) Pulse Ox O2 Delivery O2 Flow Rate FiO2 09/04/24 12:52 98.3 93 17 135/84 (101) 96 98.3 09/04/24 08:15 Room Air* 0 21 Labs/Diagnostic Data Labs Test 09/04/24 11:07 09/04/24 05:39 09/03/24 05:57 09/02/24 15:11 Range/Units POC Glucose 232 H 70-106 mg/dl White Blood Count 24.0 H 4.4-10.8 10^3/uL Red Blood Count 4.25 L 4.5-5.90 10^6/uL Hemoglobin 12.3 L 13.5-17.5 g/dL Hematocrit 37.3 L 41.0-53.0 % Mean Corpuscular Volume 87.9 80.0-100.0 fL Mean Corpuscular Hemoglobin 28.9 28.0-32.0 pg Mean Corpuscular Hemoglobin Concent 32.9 32.0-36.0 g/dL Red Cell Distribution Width 14.5 H 11.8-14.3 % Platelet Count 365 140-450 10^3/uL Mean Platelet Volume 8.8 6.9-10.8 fL Neutrophils (%) (Auto) 88.9 H 37.0-80.0 % Lymphocytes (%) (Auto) 2.6 L 10.0-50.0 % Monocytes (%) (Auto) 7.0 0.0-12.0 % Eosinophils (%) (Auto) 1.0 0.0-7.0 % Basophils (%) (Auto) 0.5 0.0-2.0 % Neutrophils # (Auto) 21.4 H 1.6-8.6 10 ^3/uL Lymphocytes # (Auto) 0.6 0.4-5.4 10 ^3/uL Monocytes # (Auto) 1.7 H 0-1.3 10 ^3/uL Eosinophils # (Auto) 0.2 0-0.8 10 ^3/uL Basophils # (Auto) 0.1 0-0.2 10 ^3/uL Nucleated Red Blood Cells 0.0 % Sodium Level 135 L 136-145 mmol/L Potassium Level 3.6 3.5-5.1 mmol/L Chloride Level 104 98-107 mmol/L Carbon Dioxide Level 19 L 20-31 mmol/L Anion Gap 12 5-15 Blood Urea Nitrogen 31 #H 9-23 mg/dL Creatinine 1.07 0.700-1.30 mg/dL Glomerular Filtration Rate Calc 81 >90 mL/min BUN/Creatinine Ratio 29.0 H 10.0-20.0 Serum Glucose 117 H 74-106 mg/dL Calcium Level 8.4 L 8.7-10.4 mg/dL Random Vancomycin Level 8.9 5-10 ug/mL Hemoglobin A1c 10.0 H <5.7 % A1C Total Bilirubin 0.3 0.2-1.0 mg/dL Aspartate Amino Transferase (AST) 51 H 13-40 U/L Alanine Aminotransferase (ALT) 55 H 7-40 U/L Alkaline Phosphatase 187 H 46-116 U/L Total Protein 6.9 5.7-8.2 g/dL Albumin 3.5 3.2-4.8 g/dL Lactic Acid Level 1.5 0.4-2.0 mmol/L Test 09/02/24 12:40 Range/Units Erythrocyte Sedimentation Rate 82 H 0-20 mm/hr Troponin I High Sensitivity 8 </=54 ng/L C-Reactive Protein High Sensitivity > 20.00 H <1.0 mg/dL B-Type Natriuretic Peptide 25.89 0-100 pg/mL Microbiology Date/Time Source Procedure Growth Status 09/02/24 12:40 Blood Blood Culture - Preliminary NO GROWTH AFTER 48 HOURS OF INCUBATION. Resulted Assessment [id number] LEFT ANKLE LOWE LEG CELLULITIS R/O FASCITIS DEFER CARE TO VASCULAR AND PODIATRY FOR EVAL AND POSSIBLE SURGERY INDICATED Plan discussed with: Patient BRITTNEY CARTER MD Sep 04, 2024 16:38
[2024-09-04] MEDS ORDERED: IOHEXOL 300 MG/ML 100ML BOTTLE IJ ONE (17:49)
--- NOTE | 2024-09-04 18:48 | DVHINCON2 ---
DATE OF CONSULTATION: 09/04/2024 HISTORY OF PRESENT ILLNESS: He is a 54 years old, coming in with past medical history of diabetes, hypertension, coming to the hospital with left lower extremity pain, swelling and he has been having this left foot pain for a few weeks and gotten worse and he was admitted. I was asked to see him. No nausea, vomiting. No constipation, diarrhea. No hematemesis, melena. No bleeding per rectum. PAST MEDICAL HISTORY: Diabetes, hypertension, HLD. PAST SURGICAL HISTORY: No significant surgical history. PHYSICAL EXAMINATION: VITAL SIGNS: Afebrile, stable signs. HEENT: With no evidence of pallor, cyanosis, or jaundice. NECK: Supple, nontender with no thyromegaly, lymphadenopathy. CHEST AND LUNGS: Clear. HEART: Within normal limits. ABDOMEN: Soft. NEUROLOGIC: Not assessed. EXTREMITIES: . CLINICAL IMPRESSION: Left ankle and lower leg cellulitis with possible vascular insufficiency. PLAN: Will be to refer this management to vascular surgery to rule out fasciitis and also to consider surgery based upon ongoing evaluation. MD AMAIRANI Henriquez/SHARDA/KIRSTIN/WARREN TID: [id number] RECEIPT: [id number] cc: Dr. Baker
--- NOTE | 2024-09-04 19:52 | DVH ---
INDICATION: r/o necrotizing fascitis COMPARISON: CT LEFT LOWER EXTREMITY W/O CON on DOS: 09/02/24 TECHNIQUE: CT of the left lower extremity was performed with administration of 100 mL Omnipaque 300 i ntravenous contrast. Volume transverse images were obtained and reconstructed in multiple planes usin g bone and soft tissue algorithms. Radiation Dose Information: CT Dose: CTDI volume is 7.75 mGy. Dose-length product is 976.43 mGy*cm FINDINGS/IMPRESSION: 1. There is diffuse soft tissue edema versus cellulitis/myositis throughout the lower extremity. Ther e is a rim enhancing multiloculated abscess measuring approximately 2.9 x 1.5 x 1.2 cm, which is cent ered at and splaying the fibularis brevis muscle and fibularis longus tendon. There is similar soft t issue gas in the soft tissues adjacent to the distal fibula which could represent necrotizing infecti on. 2. No acute osseous erosion is noted. No acute fracture is seen. Scattered degenerative changes. 3. Small knee joint effusion. 4. Severe atherosclerotic calcifications. All CT scans at this medical facility are performed using dose modulation techniques as appropriate t o a performed exam including the following: Automated exposure control was utilized; adjustment of th e MA and/or KV according to patient size; and use of iterative reconstruction technique.
--- NOTE | 2024-09-04 23:06 | DVHDS2 ---
Discharge Summary Date of Admission Sep 02, 2024 at 19:47 Date of Discharge: Sep 04, 2024 Admitting Diagnosis Diabetic foot ulcer of the left Sepsis, unspecified organisms Acute renal insufficiency Generalized weakness Diabetes mellitus with hyperglycemia Labs/Diagnostic Data: Laboratory Results Test 09/04/24 16:12 09/04/24 05:39 09/03/24 05:57 09/02/24 15:11 POC Glucose 325 mg/dl (70-106) White Blood Count 24.0 10^3/uL (4.4-10.8) Red Blood Count 4.25 10^6/uL (4.5-5.90) Hemoglobin 12.3 g/dL (13.5-17.5) Hematocrit 37.3 % (41.0-53.0) Mean Corpuscular Volume 87.9 fL (80.0-100.0) Mean Corpuscular Hemoglobin 28.9 pg (28.0-32.0) Mean Corpuscular Hemoglobin Concent 32.9 g/dL (32.0-36.0) Red Cell Distribution Width 14.5 % (11.8-14.3) Platelet Count 365 10^3/uL (140-450) Mean Platelet Volume 8.8 fL (6.9-10.8) Neutrophils (%) (Auto) 88.9 % (37.0-80.0) Lymphocytes (%) (Auto) 2.6 % (10.0-50.0) Monocytes (%) (Auto) 7.0 % (0.0-12.0) Eosinophils (%) (Auto) 1.0 % (0.0-7.0) Basophils (%) (Auto) 0.5 % (0.0-2.0) Neutrophils # (Auto) 21.4 10 ^3/uL (1.6-8.6) Lymphocytes # (Auto) 0.6 10 ^3/uL (0.4-5.4) Monocytes # (Auto) 1.7 10 ^3/uL (0-1.3) Eosinophils # (Auto) 0.2 10 ^3/uL (0-0.8) Basophils # (Auto) 0.1 10 ^3/uL (0-0.2) Nucleated Red Blood Cells 0.0 % Sodium Level 135 mmol/L (136-145) Potassium Level 3.6 mmol/L (3.5-5.1) Chloride Level 104 mmol/L (98-107) Carbon Dioxide Level 19 mmol/L (20-31) Anion Gap 12 (5-15) Blood Urea Nitrogen 31 mg/dL (9-23) Creatinine 1.07 mg/dL (0.700-1.30) Glomerular Filtration Rate Calc 81 mL/min (>90) BUN/Creatinine Ratio 29.0 (10.0-20.0) Serum Glucose 117 mg/dL (74-106) Calcium Level 8.4 mg/dL (8.7-10.4) Random Vancomycin Level 8.9 ug/mL (5-10) Hemoglobin A1c 10.0 % A1C (<5.7) Total Bilirubin 0.3 mg/dL (0.2-1.0) Aspartate Amino Transferase (AST) 51 U/L (13-40) Alanine Aminotransferase (ALT) 55 U/L (7-40) Alkaline Phosphatase 187 U/L (46-116) Total Protein 6.9 g/dL (5.7-8.2) Albumin 3.5 g/dL (3.2-4.8) Lactic Acid Level 1.5 mmol/L (0.4-2.0) Test 09/02/24 12:40 Erythrocyte Sedimentation Rate 82 mm/hr (0-20) Troponin I High Sensitivity 8 ng/L (</=54) C-Reactive Protein High Sensitivity > 20.00 mg/dL (<1.0) B-Type Natriuretic Peptide 25.89 pg/mL (0-100) Other Laboratory Tests 09/04/24 05:39 Brief Hx & Hospital Course: This is a 54 years old male with past medical history of diabetes, hypertension, hyperlipidemia came to emergency department because severe left lower extremity pain and swelling. Patient apparently experienced left foot pain, redness, swelling and open wound on the top of his foot for two weeks. He said he was in ER a week ago and was given some antibiotic and pain medication and was sent home[place] [address], BUN of 48, creatinine 1.8. C- reactive protein > 20.00, AST 101, ALT 67, lactic acid 2.3 trending down to 1.[address] of left foot without contrast showed: Left foot CT revealing small collection of associated with marked soft tissue swelling laterally consistent with an infectious etiology; findings may represent a phlegmon, no osteomyelitis seen at this time. The patient was med. The patient was put on vancomycin and Zosyn. The next day his pain is worsening. Patient can not feel his leg. Repeat CT scan of the left foot showed There is diffuse soft tissue edema versus cellulitis/myositis throughout the lower extremity. There is a rim enhancing multiloculated abscess measuring approximately 2.9 x 1.5 x 1.2 cm, which is centered at and splaying the fibularis brevis muscle and fibularis longus tendon. There is similar soft tissue gas in the soft tissues adjacent to the distal fibula which could represent necrotizing infection. No acute osseous erosion is noted. No acute fracture is seen. Scattered degenerative changes. Small knee joint effusion. Severe atherosclerotic calcifications. I discussed with the patient regarding to the seriousness of his infection. I discussed with the patient regarding to surgery consultation and possible extensive surgery even including amputation. We consulted charge authorizer and vascular surgeon since the general surgeon did not do lower extremity surgery. However a vascular surgeon is out of town. Due to the serious matter of his clinical presentation of his leg I request to transfer the patient to higher level of care. Dr. uStton, vascular surgeon at [facility] accepted the patient. I also called and signed out the patient with Dr. Alejandro, hospitalist. The patient was accepted to transfer to higher level of care at [facility]. The patient was transferred on 09/04/2024 to [facility] for further management of his left foot infection. Physical exam: HEENT: Normocephalic atraumatic pupils equal react to light and accommodation. Extraocular muscles intact, conjunctiva pink, oropharynx moist, no thrush, no exudate. Lymphatic: No lymphadenopathy Cardiovascular exam: S1, S2 was heard. No murmurs, rubs, gallops Lung: Clear on auscultation bilaterally, no wheeze, rale, rhonchi. GI: Abdominal soft, nondistended, nontenderness, positive bowel sounds. Extremity: Pedal pulses present bilateral. Full range of motion. Edema of left foot Skin: Normal turgor, no rash. Psych: Alert, oriented x3. Neurology: No focal deficits, cranial nerve II to XII grossly intact. Condition at Discharge: Guarded Final Diagnosis/Problems List Diabetic foot ulcer of the left with gas in muscle concerning of necrotizing fasciitis. Sepsis, unspecified organisms Acute renal insufficiency Generalized weakness Diabetes mellitus with hyperglycemia Discharge Disposition: Acute Care Facility Discharge Instruct/Medications Diet: Consistent carbohydrate Activity: No Restrictions, As Tolerated Discharge Statement: "Patient was advised to return to the ER or call 911 if any headaches, dizziness, shortness of breath, chest pain, abdominal pain, bleeding, fevers, or worsening of medical condition. Patient was counseled about treatment plan, medications, possible side effects, patientverbalized understanding. All questions were answered to the best of my ability. This discharge took greater then 30 minutes in planning, reviewing documentation, counseling the patient, and discussing with other team members." ASSESSMENT ASSESSMENT Assessment Date of Service: Sep 04, 2024 Billing Provider: JERALD MOSCOSO MD Common Visit Codes: 04592-UAD/OBS DISCH DAY >30min JERALD MOSCOSO MD Sep 04, 2024 23:06
[2024-09-05] MEDS ORDERED: Glucerna Carbsteady SHAKE Vanilla 8oz PO SCH (08:00)
== END 2024-09-04 21:30 | disposition short-term general hospital (02) | DRG 720 ==
LOC: ER 12:06 → OVERFLOW 19:47 → TELE-EAST 22:57
PROVIDERS: ADMIT Internal Medicine; ATTEND Internal Medicine
DX: A41.9 Sepsis, unspecified organism (principal); N17.0 Acute kidney failure with tubular necrosis; M72.6 Necrotizing fasciitis; E11.621 Type 2 diabetes mellitus with foot ulcer; L97.529 Non-pressure chronic ulcer of other part of left foot with unspecified severity; E11.65 Type 2 diabetes mellitus with hyperglycemia; E78.5 Hyperlipidemia, unspecified; L03.116 Cellulitis of left lower limb; N28.9 Disorder of kidney and ureter, unspecified; I10 Essential (primary) hypertension; Z79.4 Long term (current) use of insulin; Z79.899 Other long term (current) drug therapy; Z79.84 Long term (current) use of oral hypoglycemic drugs
CPT/HCPCS: 36415; 73700; 73701; 80048; 80053; 80202; 82962; 83036; 83605; 83880; 84484; 85025; 85652; 86141; 87040; 87077; 87186; 87205; 93926; 93971; 96365; 96375; 99291; G0378; J1815; J2543; J3490